=== PATIENT | female | born 1995 | race Caucasian/White ===

== ENCOUNTER 2024-09-23 08:53 | Outpatient (AMB) | payer OTHER, SELFPAY ==
--- NOTE | 2024-09-23 08:56 | MHC.PC.OV ---
Vital Signs 09/23/24 09:04 Height 5 ft 2 in Weight 206 lb 2 oz BMI 37.7 BP 99/66 Blood Pressure Location Lt brachial Position Sitting Respiration 12 Pulse 58 Pulse Source Pulse Oximeter Temp 97.5 F Temp Source Oral Pulse Oximetry (%) 98 Oxygen Delivery Method Room Air Intake Visit Reasons: est care Intake Note: New patient to establish care. Patient also has concerns regarding her menstrual cycle. 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 Required: No Is last menstrual period known: Yes Last menstrual period: 09/01/24 Allergies No Known Allergies Allergy (Verified 09/23/24 08:58) Medication List - Last Reconciled 09/23/24 by Claudia Sheikh, FINANCE INSURANCE MANAGER- bupropion HCl 100 mg PO DAILY lamotrigine (Lamictal) 150 mg PO DAILY sertraline (Zoloft) 50 mg PO DAILY Tobacco use date assessed: 09/23/24 Dental Screening Dental Screen Date: 09/23/24 Did you have a dental visit in the last 12 months?: No Did you have a dental problem in the last 6 months where you did not have access to dental care?: No Was dental information given to patient?: Yes HPI HPI Comments History of Present Illness Details 29 y/o F with obesity, Bipolar, family hx breast ca (MGM), dysmenorrhea Hosp: has been to partial hosp for Bipolar x 2 Surgery: breast reduction 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 - Regular menstrual cycle every 28 to 30 days, noted to be heavy and painful. - Symptoms include exhaustion and severe menstrual cramps. - High flow causing constant use of both a super plus tampon and an overnight pad. - Interested in [facility] referral for potential endometriosis or adenomyosis. - Bipolar disorder treated with sertraline, lamotrigine, and bupropion. managed by online psych. not in counseling, does not think needs. Denies SI/HI Health Maintenance - Tetanus immunization updated today. - Referral to [facility] for menstrual issues. Review of Systems - Reproductive: Reports heavy, painful menstrual bleeding - Psychiatric: Denies current psychiatric symptoms outside of what is managed with current medication GI: BM QD but does have bloating and constipation twice per month. Ears - reports hearing loss bilat, for years, would like hearing test Physical Exam General: Well developed, well nourished, in no acute distress. Appears stated age. Eyes: Pupils are equal, round and reactive to light and accommodation. Conjunctivae are clear. Ears: TMs clear AU, EACS WNL Nose: Patent, without discharge. Neck: Supple, no adenopathy or thyromegaly. Breast: Edu on SBE Lungs: Clear to auscultation bilaterally. No rales, rhonchi or wheeze noted. Good air flow in all cruz. Heart: Regular rate and rhythm. No murmurs, click, rubs or gallops are noted. Abdomen: Bowel sounds present in all quadrants. The abdomen is soft, nontender, with no masses or organomegaly noted. No hernias are noted. Mild tenderness RLQ w/o rebound : Deferred. Reviewed recommendations for routine TIRE CARE MANAGER. Pulses: Peripheral pulses are equal and palpable bilaterally. Extremities: No clubbing, cyanosis nor edema is noted. Neurologic: Gait and station normal. Cranial Nerves 2-12 intact. Motor strength grossly symmetrical and intact. No sensory loss. Balance normal. Skin: No rashes, ulcers, or lesions noted. Turgor is good. Skin color is good. Hair and nails are without abnormalities. Psych: Normal eye contact, affect and mood appropriate, and normal interactions. Patient is alert and appropriate to context. Results Pending Discussion Notes During our consultation, I discussed with the patient her concerns surrounding menstrual abnormalities, specifically the heaviness and pain associated with her periods. We explored the possibility of conditions like endometriosis or adenomyosis which may be contributing to her symptoms. I provided a referral to the [facility] group. We discussed the importance of addressing constipation, possibly with Benafiber or MiraLax, and the necessity of a tetanus booster, which was administered during today's visit. I instructed the patient regarding accessing the patient portal to monitor lab results and to follow-up with online psychiatry and women's health specialists annually. Assessment and Plan 1. Bipolar Disorder - Continue sertraline, lamotrigine, bupropion. - Annual online psychiatry follow-up. 2. Menstrual Abnormalities - [facility] referral placed. - Evaluate for endometriosis/adenomyosis. 3. Obesity - Lifestyle mods 4. Hearing loss Refer for hearing exam Patient Instructions - Call Luna Haywood [facility] CON[facility]ATION[facility] to schedule an appointment. - Consider Benafiber or MiraLax for constipation management. - Use the patient portal to monitor test results. - Labs today -Tdap admin today - Return for an annual exam or as needed. Consent Patient was informed and verbally consented to the use of an ambient scribe for clinic note documentation during this visit. An additional 20 minutes was spent addressing the problem(s) noted at todays visit. This includes time spent before the visit reviewing the chart, time spent during the visit, and time spent after the visit on documentation reviewing laboratory results, diagnostic imaging, medications, performing a medically necessary evaluation, counseling on diagnoses, care coordination, ordering appropriate tests, ordering appropriate medications, review of tests performed by other providers, reporting test results with the patient, communication with other healthcare providers. [facility] Medical History (Updated 09/23/24 @ 09:[address] [facility]) Anxiety and depression Bipolar 1 disorder Surgical History (Updated 09/23/24 @ 09:08 by Jesus Sanchez MA) Hx of breast reduction, elective (~10/2021) Family History (Updated 09/23/24 @ 09:09 by Jesus Sanchez MA) Maternal Grandmother Substance abuse Breast cancer Maternal Grandfather Lung cancer Social History (Updated 09/23/24 @ 09:09 by Jesus Sanchez MA) Household Members: Spouse Both parents involved: No Caregiver staying overnight: No Housing: House Are you a primary medicare compliance auditor to a significant other at home: No Do you presently have visiting nurse or other home services: No 75 years or older and lives alone: No Alcohol intake: current Alcohol intake frequency: a few times a month Patient Tobacco Use Status: Never used Tobacco e-Cigarette/Vaping Use: Never Used Second Hand Smoke Exposure: No Substance Use Type: Marijuana service: No Current occupational status: employed 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 1. Little interest or pleasure in doing things: not at all 2. Feeling down, depressed, or hopeless: not at all 3. Trouble falling or staying asleep, or sleeping too much: more than half the days 4. Feeling tired or having little energy: more than half the days 5. Poor appetite or overeating: not at all 6. Feeling bad about yourself - or that you are a failure or have let yourself or your family down: not at all 7. Trouble concentrating on things, such as reading the newspaper or watching television: several days 8. Moving or speaking so slowly that other people could have noticed. Or the opposite - being so fidgety or restless that you have been moving around a lot more than usual: not at all 9. Thoughts that you would be better off or of hurting yourself in some way: not at all Total score: 5 Depression Screening Interpretation: Positive Depression Screening Follow-up: Existing condition and In treatment Depression Screening Done: Yes 57154 - PHQ-9 Billing: Yes Source: Developed by Drs. Jos Khan, Laurence Phelps, Giancarlo Crawley and colleagues, with an educational latoya from [employer]. Thrive Questionnaire Date Thrive assessed: 09/23/24 I am a: Patient What is your living situation today?: I have a steady place to live Within the past 12 months, did the food you bought not last and you didn't have the money to get more?: Never true Within the past 12 months, did you worry whether your food would run out before you got money to buy more?: Never true Do you have trouble paying for medicines?: No Do you have trouble getting transportation to medical appointments?: No Do you have trouble paying your heating and electricity bill?: No Do you have trouble taking care of your child, family member or friend?: No Do you have trouble with day-to-day activities such as bathing, preparing meals, shopping, managing finances, etc.?: I choose not to answer this question Are you currently unemployed and looking for a job?: No Are you interested in more education?: No Please select the resources that you would like help with: None Currently or been in a relationship where the following occur: I choose not to answer THRIVE Score: 0 AUDIT C Alcohol Use Questionnaire (AUDIT-C) 1. How often do you have a drink containing alcohol?: 2-3 times a week 2. How many drinks containing alcohol do you have on a typical day when you are drinking?: 1 or 2 3. How often do you have six or more drinks on one occasion?: Never Total Score: 3 Score Reviewed/Action Taken: Yes ADRIANA-7 AMB Questionnaire ADRIANA-7 Date ADRIANA - 7 assessed: 09/23/24 Feeling nervous, anxious, or on edge: 1 = Several days Not being able to stop or control worryin = Not at all Worrying too much about different things: 1 = Several days Trouble relaxin = Several days Being so restless that it is hard to sit still: 0 = Not at all Becoming easily annoyed or irritable: 1 = Several days Feeling afraid as if something awful might happen: 0 = Not at all Total ADRIANA-7 score (0-4 normal; 5-9 mild; 10-14 moderate; 15-21 severe): 4 Source: Developed by Drs. Jos Khan, Laurence Phelps, Giancarlo Crawley and colleagues, with an educational latoya from [employer]. ADRIANA-7 Assessment Billing ADRIANA-7 Assessment Tool: ADRIANA-7 Assessment 24551 Physical exam (Primary Care) Vital Signs: Last Vital Signs Temp 97.5 F 09/23/24 09:04 Pulse 58 09/23/24 09:04 Resp 12 09/23/24 09:04 BP 99/66 09/23/24 09:04 Pulse Ox 98 09/23/24 09:04 Oxygen Delivery Method Room Air 09/23/24 09:04 BMI result Body Mass Index 37.7 BMI Assessment/Plan discussion: High BMI High, discussed plan: lifestyle Tobacco/Smoking Status: Tobacco use Status Tobacco use date assessed 09/23/24 09/23/24 09:01 Patient Tobacco Use Status Never used Tobacco 09/23/24 09:09 e-Cigarette/Vaping Use Never Used 09/23/24 09:09 PHQ-9: PHQ-9 Score PHQ-9: Total score 5 09/23/24 09:19 Depression Screening Interpretation: Positive Depression Screening Follow-up: Existing condition and In treatment Thrive Assessment: Date of Thrive Assessment Date Thrive assessed 09/23/24 09/23/24 09:01 Currently or been in a relationship where the following occur: I choose not to answer Immunizations Boostrix Tdap 2.5 Lf unit-8 mcg-5 Lf/0.5 mL intramuscular syringe Performing Provider: AMARA Sanchez Performing Location: [facility] Administered by: Jesus Sanchez MA on 09/23/24 09:44 Dose Route Admin Location Dispensed Lot Number Expiration Date NDC [employer]ricator 0.5 mL IM Left Deltoid 0.5 mL [id number] 12/18/26 [id number] Litesprite VIS Given Date VIS Provided VIS Publication Date 09/23/24 Single Vaccine 20 Eligibility Eligibility Date Funding Source Not [facility] Eligible 09/23/24 Private Coding Level of Care Code New Pt Level 2 (97511) Est Pt Prev Care 18-39y(26732) Diagnoses Encounter to establish care Z76.89 Obesity (BMI 30-39.9) E66.9 Dysmenorrhea N94.6 Laboratory exam ordered as part of routine general medical examination Z00.00 Need for Tdap vaccination Z23 Bipolar 1 disorder F31.9 Bilateral hearing loss, unspecified hearing loss type H91.93 Hearing loss type: unspecified Laterality: bilateral Constipation, unspecified constipation type K59.00 Constipation type: unspecified constipation type Family history of breast cancer Z80.3 Encounter for general adult medical examination with abnormal findings Z00.01 Additional Codes ADRIANA-7 Assessment Billing - ADRIANA-7 Assessment Tool: ADRIANA-7 Assessment 01177 ([id number]) PHQ-9 - 97032 - PHQ-9 Billing: Yes ([id number]) Assessment & Plan Assessment & Plan (1) Encounter to establish care: Code(s): Z76.89 - Persons encountering health services in other specified circumstances (2) Obesity (BMI 30-39.9): Code(s): E66.9 - Obesity, unspecified Category: Medical (3) Dysmenorrhea: Code(s): N94.6 - Dysmenorrhea, unspecified Category: Medical (4) Laboratory exam ordered as part of routine general medical examination: Code(s): Z00.00 - Encounter for general adult medical examination without abnormal findings Category: Medical (5) Need for Tdap vaccination: Code(s): Z23 - Encounter for immunization Category: Medical (6) Bipolar 1 disorder: Code(s): F31.9 - Bipolar disorder, unspecified Category: Medical (7) Hearing loss: Code(s): H91.90 - Unspecified hearing loss, unspecified ear Category: Medical Qualifiers: Hearing loss type: unspecified Laterality: bilateral Qualified Code(s): H91.93 - Unspecified hearing loss, bilateral (8) Constipation: Code(s): K59.00 - Constipation, unspecified Category: Medical Qualifiers: Constipation type: unspecified constipation type Qualified Code(s): K59.00 - Constipation, unspecified (9) Family history of breast cancer: Comment: [facility] Code(s): Z80.3 - Family history of malignant neoplasm of breast Category: Medical (10) Encounter for general adult medical examination with abnormal findings: Onset Date: ~09/23/24 Code(s): Z00.01 - Encounter for general adult medical examination with abnormal findings Category: Medical Plan . Orders: Orders TDaP Immunization Today Z23 - Encounter for immunization Complete Blood Count no Diff Today Z00.00 - Encounter for general adult medical examination without abnormal findings Comprehensive Met. Panel Today Z00.00 - Encounter for general adult medical examination without abnormal findings Lipid Panel Today Z00.00 - Encounter for general adult medical examination without abnormal findings Microalbumin, Random (w Creat) Today Z00.00 - Encounter for general adult medical examination without abnormal findings Vitamin D 25-OH Total Today Z00.00 - Encounter for general adult medical examination without abnormal findings Hemoglobin A1c Today Z00.00 - Encounter for general adult medical examination without abnormal findings Ferritin Today Z00.00 - Encounter for general adult medical examination without abnormal findings TSH reflex Free T4 Today Z00.00 - Encounter for general adult medical examination without abnormal findings Vitamin B12 and Folate Today Z00.00 - Encounter for general adult medical examination without abnormal findings Referrals [facility] Referral N94.6 - Dysmenorrhea, unspecified, Z12.4 - Encounter for screening for malignant neoplasm of cervix Audiology Referral H91.90 - Unspecified hearing loss, unspecified ear Medications: New Boostrix Tdap (diphth,pertus(acell),tetanus) 0.5 mL IM ONCE 0.5 mL 0RF NS Z23 - Encounter for immunization Patient Instructions: Walk-In Care (Urgent Care): We Make it Easy Walk-in for urgent medical issues such as: ? Seasonal Allergies ? Insect Bites ? Cough ? Diarrhea ? Acute Asthma Attacks ? Back, Knee or Joint Pain ? Ear Infection ? Fever without a Rash ? Headaches ? Nausea ? [place], Rash or Skin Irritation ? Sore Throat ? Sports Physicals ? Vomiting Most insurances are accepted. Patients do not need to be part of the [facility] to seek care at the walk-in clinic. Locations [address] [place] [address] ? [phone] [facility] Walk-In Care in [place] provides services to ages 18 and over. Open Saturday-Saturday: 8 a.m. to 5 p.m. and Saturday: 9 a.m. to 3 p.m.* *Hours may vary due to staffing availability. To confirm Walk-In Care hours in [place], please call [phone]. [address] [place] [address] ? [phone] [facility] Walk-In Care in [place] provides services to ages 12 and over. Open Saturday-Saturday: 8 a.m. to 5 p.m. Hours may vary due to staffing availability. To confirm Walk-In Care hours in [place], please call [phone]. LABORATORY SERVICES: [facility] Lab ? Primary Location [address] [place] [address] Saturday through Saturday 6:00 AM ? 5:00 PM Saturday 7:00 AM ? 11:00 AM* [phone] The [facility] Lab is centrally located near the front entrance of the [facility] Center for easy outpatient access. Convenient parking is provided for outpatients. *Hours may vary due to staffing availability. To confirm Laboratory hours for any location, please call [phone]. Offsite Location For your convenience, we offer offsite laboratory draw stations at the following locations: [address] [place] [address] ? [facility] [address], [address] Saturday through Saturday 7:30 AM ? 1:00 PM* [phone] *Hours may vary due to staffing availability. To confirm Laboratory hours for any location, please call [phone]. [place] ? [address] Saturday through Saturday 6:00 AM ? 3:30 PM* Saturday 6:30 AM ? 3 PM* [phone] *Hours may vary due to staffing availability. To confirm Laboratory hours for any location, please call [phone]. [address] [facility] Saturday through Saturday 7:30 AM ? 4:00 PM* [phone] *Hours may vary due to staffing availability. To confirm Laboratory hours for any location, please call [phone]. [address] [facility] Saturday through 9:00 AM ? 4:00 PM* *Hours may vary due to staffing availability. To confirm Laboratory hours for any location, please call [phone]. Appointments are not necessary. Walk-ins are welcome. Like all the departments throughout the [facility], our Lab undergoes frequent reviews to ensure the quality and accuracy of test results, and our staff takes special pride in its status as a nationally accredited facility. Patient Portal: ONE PATIENT. ONE RECORD. BETTER CARE. [facility] has a fully integrated, cutting-edge mobile electronic health information system that has revolutionized the way we care for our patients and manage our organization. This system improves communication and coordination enabling us to provide safe, higher-quality care, and an overall positive experience for staff and patients. Our first priority, as always, is to deliver the highest quality care possible. The system is running in the background supporting that priority. This portal is for all [facility] and [facility] services and practices. If you are experiencing any technical difficulties with enrolling or logging into the Patient Portal please complete the [facility] Patient Portal Technical Support Form. [facility] now offers a new secure on-line interactive tool for patients to review their health information ? ?Patient Portal. This interactive web portal will enable patients and their families to take an active role in their care by providing easy, secure access to their health information via the internet. The Patient Portal provides patients with instant access to their health information, including laboratory results, medications, allergies, demographic information, visit history, and more. In addition to managing their own care, parents and health care proxies with authorized consent will appreciate the ability to access the records of those individuals for whom they provide care. Please note: if you wish to gain access (Proxy) to another patient?s portal, you will be required to come to the Medical Records Department in person at [facility]. Both the patient giving proxy access and the proxy will need to provide photo identification and complete the appropriate authorization. The Patient Portal also allows track their appointments online. The [facility] Patient Portal also saves patients time by allowing them to submit updates to their demographic and contact information prior to their visits. Portal email notifications will also alert patients to any new activity on their portal, such as test results and new appointments. In order to initially enroll in the [facility] Patient Portal, you will need to enter some required information including the following: your [facility] Medical Record number your personal home email address name date of Please note: In order to enroll in the [facility] Patient Portal, we need to have your email address on file in your electronic medical record. ?The email address needs to be specific for one person (yourself) in order for your Portal enrollment to be successful. ?You can update your email address in person with our Registration staff when you are registering for a hospital visit. ?Otherwise, you will need to come to the Health Information Management (Medical Records) Department at [facility]. ?We are open from Saturday ? Saturday from 7:30 a.m. ? 4:30 p.m. ?You will be required to present a photo id. Once you have successfully enrolled in the Patient Portal, you will receive a one-time user id and password for the Portal, sent to your email address. ?This will allow you to log into the Patient Portal within 99 hrs and reset your own logon id and password, and define personal security questions. ?Once your permanent login and password have been set, you can log into the [facility] Patient Portal at any time via the blue button above or from the Portal Logon button on any page of the [facility] website. [facility] encourage all of our patients to enroll in Patient Portal as it presents a valuable opportunity for patients and their families to actively participate in their care and stay healthy Welcome to [facility]. ?We look forward to working with you. Health screenings for women You should visit your health care provider from time to time, even if you are healthy. The purpose of these visits is to: Screen for medical issues Assess your risk for future medical problems Encourage a healthy lifestyle Update vaccinations and other preventive care services Help you get to know your provider in case of an illness Information Even if you feel fine, you should still see your provider for regular checkups. These visits can help you avoid problems in the future. For example, the only way to find out if you have high blood pressure is to have it checked regularly. High blood sugar and high cholesterol levels also may not have any symptoms in the early stages. A simple blood test can check for these conditions. There are specific times when you should see your provider or receive specific health screenings. The [place] Preventive Services Task Force publishes a list of recommended screenings. Below are screening guidelines for women ages 18 to 39. BLOOD PRESSURE SCREENING Your blood pressure should be checked at least once every 3 to 5 years if: Your blood pressure is in the normal range (top number less than 120 mm Hg and bottom number less than 80 mm Hg) You don't have risk factors for high blood pressure Ask your provider if you need your blood pressure checked more often if: The top number is 120 to 129 mm Hg or the bottom number is 70 to 79 mm Hg You have diabetes, heart disease, kidney problems, are overweight, or have certain other health conditions You have a first-degree relative with high blood pressure You are Black You had high blood pressure during a If the top number is 130 mm Hg or greater or the bottom number is 80 mm Hg or greater, this is considered stage 1 hypertension. Schedule an appointment with your provider to learn how you can reduce your blood pressure. Watch for blood pressure screenings in your area. Ask your provider if you can stop in to have your blood pressure checked. BREAST CANCER SCREENING Experts do not agree about the benefits of breast self-exams in finding breast cancer or saving lives. Talk to your provider about what is best for you. A screening mammogram is not recommended for most women under age 40. Your provider may discuss and recommend mammograms, MRI scans, or ultrasounds if you have an increased risk for breast cancer, such as: A mother or sister who had breast cancer at a young age (most often starting screening earlier than the age the close relative was diagnosed) You carry a high-risk genetic marker CERVICAL CANCER SCREENING Cervical cancer screening should start at age 21 years unless your provider advises otherwise. After the first test: Women ages 21 through 29 should have a Pap test every 3 years. Exoprts do not agree on whether HPV testing is recommended for this age group. Women ages 30 through 65 should be screened with either a Pap test every 3 years or the HPV test every 5 years or both tests every 5 years (called cotesting ). Women who have been treated for precancer (cervical dysplasia) should continue to have Pap tests for 20 years after treatment or until age 65, whichever is longer. If you have had your uterus and cervix removed (total hysterectomy), and you have not been diagnosed with cervical cancer or precancer (high grade cervical neoplasia), you do not need cervical cancer screening. CHOLESTEROL SCREENING Cholesterol screening should begin at: Age 45 for women with no known risk factors for coronary heart disease Age 20 for women with known risk factors for coronary heart disease Repeat cholesterol screening should take place: Every 5 years for women with normal cholesterol levels More often if changes occur in lifestyle (including weight gain and diet) More often if you have diabetes, heart disease, kidney problems, or certain other conditions DIABETES SCREENING You should be screened for diabetes starting at age 35 and then repeated every 3 years if you have no risk factors for diabetes. Screening may need to start earlier and be repeated more often if you have other risk factors for diabetes, such as: You have a first degree relative with diabetes. You are overweight or have obesity. You have high blood pressure, prediabetes, or a history of heart disease. Screening for diabetes should be done if you are planning to become and you are overweight and have other risk factors such as high blood pressure. DENTAL EXAM Go to the dentist once or twice every year for an exam and cleaning. Your dentist will evaluate if you need more frequent visits. EYE EXAM Have an eye exam every 5 to 10 years before age 40. If you have vision problems, have an eye exam every 2 years or more often if recommended by your provider. You should have an eye exam that includes an examination of your retina (back of your eye) at least every year if you have diabetes. IMMUNIZATIONS Commonly needed vaccines include: Flu shot: get one every year. COVID-19 vaccine: ask your provider what is best for you. Tetanus-diphtheria and acellular pertussis (Tdap) vaccine: have one at or after age 19 as one of your tetanus-diphtheria vaccines if you did not receive it as an adolescent. Tetanus-diphtheria: have a booster (or Tdap) every 10 years. Varicella vaccine: receive 2 doses if you never had chickenpox or the varicella vaccine. Hepatitis B vaccine: receive 2, 3, or 4 doses, depending on your exact circumstances. Measles, mumps, and rubella (MMR) vaccine: receive 1 to 2 doses if you are not already immune to MMR. Your provider can tell you if you are immune. Ask your provider about the human papillomavirus (HPV) vaccine if: You have not received the HPV vaccine in the past You have not completed the full vaccine series (you should catch up on this shot) Ask your provider if you should receive other immunizations if you have certain health problems that increase your risk for some diseases such as pneumonia. INFECTIOUS DISEASE SCREENING Women who are sexually active should be screened for chlamydia and gonorrhea up until age 25. Women 25 years and older should be screened for chlamydia and gonorrhea if at high risk. Screening for hepatitis C: All adults ages 18 to 79 should get a one-time test for hepatitis C. people should be screened at every . Screening for human immunodeficiency virus (HIV): All people ages 15 to 65 should get a one-time test for HIV. Depending on your lifestyle and medical history, you may also need to be screened for infections such as syphilis and HIV, as well as other infections. PHYSICAL EXAM All adults should visit their provider from time to time, even if they are healthy. The purpose of these visits is to: Screen for disease Assess your risk of future medical problems Encourage a healthy lifestyle Update your vaccinations and other preventive care services Maintain a relationship with a provider in case of an illness Your height, weight, and BMI should be checked at every exam. During your exam, your provider may ask you about: Depression and anxiety Diet and exercise Alcohol and tobacco use Safety issues, such as using seat belts, smoke detectors, and intimate partner violence Your medicines and risk for interactions SKIN SELF-EXAM Your provider may check your skin for signs of skin cancer, especially if you're at high risk, such as if you: Have had skin cancer before Have close relatives with skin cancer Have a weakened immune system OTHER SCREENING Talk with your provider about colon cancer screening if you have a strong family history of colon cancer or polyps, or if you have had inflammatory bowel disease or polyps yourself. Routine bone density screening of women under 40 is not recommended.
[2024-09-23 09:04] VITALS: BP 99/66; PULSE 58; RESP 12; TEMP 36.4; O2SAT 98; BMI 37.7
--- OUTSIDE RECORDS SUMMARY | 2024-09-23 09:16 | XMS_ITS | Data Portability ---
Author Organization [place] - [facility] , [facility] ([facility]) Address [address] [place] [address] Assessment Encounter Date Assessment Date Assessment LastModified by Organization Details LastModified Time 05/23/2024 05/23/2024 Encounter for issue of repeat prescription Assessment: Patient in need of medication for refill for Lamictal 150mg Take po daily #90, Wellbutrin XL 150mg po daily #90, and Zoloft 100mg po 2 times #180. Patient agrees with assessment and plan of care. Plan Medication refill sent to pharmacy. Patient will follow up as needed. Go to the ER or urgent care if you develop difficulty breathing or swallowing or any worsening symptoms. [email or web address] Not available 05/23/2024 10:00:40 Plan of Treatment Reminders Order Date Submit Date Provider Last Modified By Organization Details Last Modified Time Details Appointments None recorded. Lab None recorded. Referral None recorded. Procedures None recorded. Surgeries None recorded. Imaging None recorded. Medication Orders Lamictal 150 mg tablet 2024 025 [facility][id number], [address], [place], [id number], 10:00:07 sertraline 100 mg tablet 2024 025 [facility], [address], [place], [id number], 10:00:11 bupropion HCl XL 150 mg 24 hr tablet, extended release 2024 025 [facility], [address], [place], [id number], 5 10:00:07 Lamictal [address] [facility] #53455, [address], [place], [id number], 5 10:02:22 bupropion HCl XL 150 mg 24 hr tablet, extended release [address] [facility] #34182, [address], [place], [id number], 5 10:02:22 sertraline 100 mg tablet [address] [facility] #28056, [address], [place], [id number], 5 10:02:26 Patient TargetsNo targets recorded. Patient InstructionsNo instructions recorded. Reason for Referral None Reported. Problems Name Problem SNOMED Code Status Onset Date Resolution Date Notes Provider Name and Address Organization Details Recorded Time Anxiety 88168721 Active 2024 Esha Ghotra [facility] [address], [address], [place] [facility] 5 09:59:17 Depressive disorder 34920975 Active 2024 Esha Ghotra [facility] [address], [address], [place] [facility] 5 09:59:22 Problem Notes None recorded. Medical Equipment None Reported. Allergies No known drug allergies Medications Name Sig Start Date Stop Date Status Note LastModified by Organization Details LastModified Time sertraline 100 mg tablet Take 1 tablet twice a day by oral route. 025 active Not Available Not Available Not Avai lable Lamictal 150 mg tablet Take 1 tablet every day by oral route. active Not Available Not Available Not Avai lable bupropion HCl XL 150 mg 24 hr tablet, extended release Take 1 tablet every day by oral route. 05/02/2 025 active Not Available Not Available Not Avai lable Wellbutrin XL active ADDED BY KAILEY T: 150mg Not Available Not Available Not Available Vitals None Recorded Social History None recorded. Functional Status None recorded. Mental Status None recorded. Family History Nothing Reported. Medical History No medical history recorded. Gynecological HistoryNo gynecological history recorded. Obstetrics History GPAL:G 0 P 0 0 0 0 Past Encounters Encounter ID Performer Location Encounter Start Date Encounter Closed Date Diagnosis/Indication Diagnosis SNOMED-CT Code Diagnosis ICD10 Code Diagnosis Note [id number] Esha SherwoodAshley , [address] [address] 05/23/2024 09:56:59 05/23/2024 16:02:36 Generalized anxiety disorder 51176269 F41.1 [id number] Jaqueline Culp, [address] [address] 08/21/2024 09:56:57 08/22/2024 01:24:22 Repeated prescription 125867026 Z76.0 Generalize d anxiety disorder 04044379 F41.1 Continue Lamictal per RXContinue Sertraine per RXContinue Wellbutrin XL per RX Patient verbalizes an understand ing of the medication purpose and possible side effects and feels that the benefits outweigh the risk at this time. The patient denies any questions. *Advised patient on the importance of following up with any questions/ concerns or if symptoms worsen or do not improve. Reviewed red flag symptoms that would indicate need for emergent follow up locally. Diagnosis, education and treatment plan discussed and all questions answered. Patient voiced understand ing and agreement with plan as outlined above. Health Concerns Section Related Observation LastModified by Organization Detai ls LastModified Time None Recorded Concern Status LastModified by Organization Details LastModified Time None Recorded Advance Directives Directive None Recorded Payers Insurance Date Sequence Insurance Name Policy Number Policy Rutledge Covered Member ID Rutledge Member ID Guarantor Name 05/23/2024 2 *SELF PAY* Nelida Pryfogle [id number] Nelida Pryfogle 08/21/2024 [facility] Nelida Pryfogle [id number] Nelida Pryfogle 05/23/2024 1 *SELF PAY* Coto nnah Pryfogle 08/21/2024 1 [facility] Nelida Pryfogle [id number] Nelida Pryfogle Notes Date Note Type Note Provider Name and Address Organization Details Recorded Time 05/23/2024 text/html Call connected, patient greeted. Patient name, , telephone number and location verified verbally with the patient. Telemedicine limitations reviewed and verbal consent obtained to treat. Clinician attests they are physically located in the following state at the time of visit: [place]. CC: Medication Refill HPI: Patient is a 29 year old female requesting medication refill. Reports is currently on Lamictal, Wellbutrin, and Zoloft. Has been on for several years. Condition controlled with medication. No side effects reported.Requestin g refill due to not being able to get PCP/Specialty appointment til next couple of months.Recent labs last yearChart reviewed, no noted conditional refill instructions.LMP-2 weeks agoCovid-Not eliciting symptoms of Covid LAUREN Martinez [address] [facility] [address], [place], [address], [facility] 05/23/2024 10:02:46 08/21/2024 text/html Call connected, patient greeted. Clinician introduced along with credentials Patient name, , telephone number, and location verified verbally with the patient. Telemedicine limitations reviewed, answered all questions the patient had about the telehealth interaction, and verbal consent obtained to treat. Clinician attests they are physically located in the following state at the time of visit: [place] physical location at the time of our visit is in the state of [place] CC Medication RefillCC anxiety HPI 29 yo male presents with a cc of anxiety medication refill.. Patient states she is needing a medication refill for :1) LaMICtal 150 mg tablet QD2) Sertraline 100 mg PO QD3) bupropion HCL XL 150 mg QDGAD-7 = 4, PHQ-9 = 5 Denies loss of interest in activity of depressed mood. Denies SI or HI she she feels her symptoms /dx is controlled without side effects. has been on current meds and dosages for greater then 5 years LAUREN Patrick 1 [facility] [address], [place], [address], [facility] - [facility] 08/21/2024 21:52:18 OBGyn Episode No OBEpisode recorded.
== END 2024-09-23 09:44 | disposition home or self-care (01) ==
LOC: HO.HMCFM 08:53
PROVIDERS: PCP Nurse Practitioner Family; Visit Provider Nurse Practitioner Family
DX: Z00.01 Encounter for general adult medical examination with abnormal findings (principal); N94.6 Dysmenorrhea, unspecified; F31.9 Bipolar disorder, unspecified; Z68.37 Body mass index [BMI] 37.0-37.9, adult; E66.9 Obesity, unspecified; Z76.89 Persons encountering health services in other specified circumstances; Z23 Encounter for immunization; H91.93 Unspecified hearing loss, bilateral; K59.00 Constipation, unspecified; Z80.3 Family history of malignant neoplasm of breast

== ENCOUNTER → 2024-09-23 08:53 | Outpatient (BNVA) | payer OTHER, SELFPAY | PROVIDERS: PCP Nurse Practitioner Family; Visit Provider Nurse Practitioner Family | DX: Z00.01 Encounter for general adult medical examination with abnormal findings (principal); E66.9 Obesity, unspecified; F31.9 Bipolar disorder, unspecified; N94.6 Dysmenorrhea, unspecified; H91.93 Unspecified hearing loss, bilateral; K59.00 Constipation, unspecified; Z80.3 Family history of malignant neoplasm of breast; Z23 Encounter for immunization; Z76.89 Persons encountering health services in other specified circumstances; Z68.37 Body mass index [BMI] 37.0-37.9, adult | CPT/HCPCS: 90471; 90715; 96127 ==

== ENCOUNTER 2024-09-23 09:49 | Outpatient (REF) | payer OTHER, SELFPAY ==
[2024-09-23 11:34] LABS: Hematocrit 42.3 % (37.0-47.0); Hemoglobin 13.8 g/dl (12.0-16.0); Mean Corpuscular HGB Conc 32.6 g/dl (31.0-35.0); Mean Corpuscular Hemoglobin 27.2 pg (27.0-33.0); Mean Corpuscular Volume 83.3 fL (80.0-98.0); Mean Platelet Volume 9.4 fL (9.4-12.3); Platelet Count 315 X10*3/uL (160-400); Red Blood Count 5.08 X10*6/uL (4.20-5.50); Red Cell Distribution Width 13.5 % (11.0-16.0); White Blood Count 7.3 X10*3/uL (4.8-10.8)
[2024-09-23 11:43] LABS: Estimated Average Glucose 103 mg/dL; Hemoglobin A1c % 5.2 % (<6.0)
[2024-09-23 12:59] LABS: Folate 8.2 ng/mL (> or = 4.0); Vitamin B12 518 pg/mL (200-900)
[2024-09-23 14:43] LABS: Alanine Aminotransferase 378 U/L (0-31); Albumin Level 4.7 g/dL (3.5-5.0); Alkaline Phosphatase 131 U/L (39-117); Anion Gap 11 (12-20); Aspartate Amino Transferase 197 U/L (5-31); Bilirubin Total 0.4 mg/dL (0.0-1.0); Blood Urea Nitrogen 10 mg/dL (9-16); Calcium 9.6 mg/dL (8.4-10.2); Carbon Dioxide 25 mmol/L (22-29); Chloride 107 mmol/L (96-108); Cholesterol 226 mg/dL (<200); Estimated Glomerular Filt Rate > 60; Ferritin 29 ng/mL (10-122); Glucose Random 80 mg/dL (60-115); HDL Cholesterol 42 mg/dL (>40); LDL Cholesterol Calculated 137 mg/dL (<100); Potassium 3.8 mmol/L (3.3-5.1); Sodium 139 mmol/L (135-145); TSH reflex Free T4 1.58 uIU/mL (0.32-4.0); Total Protein 7.6 g/dL (6.5-8.0); Triglycerides 238 mg/dL (<150); Vitamin D 25-OH Total 23.5 ng/mL (>30)
[2024-09-23 14:52] LABS: Creatinine Urine 146.39 mg/dL; Microalbumin Urine < 5.0 mg/L
== END 2024-09-23 09:50 | disposition home or self-care (01) ==
LOC: HO.WFDLDS 09:49
PROVIDERS: Visit Provider Nurse Practitioner Family
DX: Z00.00 Encounter for general adult medical examination without abnormal findings (principal); Z13.1 Encounter for screening for diabetes mellitus; Z13.6 Encounter for screening for cardiovascular disorders; E78.00 Pure hypercholesterolemia, unspecified
CPT/HCPCS: 36415; 80053; 80061; 82306; 82570; 82607; 82728; 82746; 83036; 84443; 85027

== ENCOUNTER 2024-10-02 14:40 | Outpatient (AMB) | payer OTHER, SELFPAY ==
--- NOTE | 2024-10-02 14:40 | A.OFFPC_ITS ---
Intake Visit Reasons: possible referral for galbladder removal Intake Note: Telehealth Patient states shes out of state and needs surgery on gallbladder. Patient need referral for surgeon for gallbladder. Track Manager Required: No Allergies No Known Allergies Allergy (Verified 10/02/24 15:15) Medication List - Last Reconciled 10/02/24 by SHYANN SanchezP- bupropion HCl 100 mg PO DAILY cholecalciferol (vitamin D3) 25 mcg PO DAILY lamotrigine (Lamictal) 150 mg PO DAILY sertraline (Zoloft) 50 mg PO DAILY Tobacco use date assessed: 10/02/24 Dental Screening Dental Screen Date: 10/02/24 Did you have a dental visit in the last 12 months?: Yes Did you have a dental problem in the last 6 months where you did not have access to dental care?: No Was dental information given to patient?: Patient has dentist HPI HPI Comments History of Present Illness Details 29 y/o F with obesity, Bipolar, family h x breast ca (MGM), dysmenorrhea Hosp: has been to partial hosp for Bipolar x 2 Surgery: breast reduction 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 - Acute onset of abdominal pain occurred during a trip to [place]. - Worsening liver function tests were de tected during hospital admission. - MRI confirmed obstructive gallstones. - Treatment included dietary changes, pa in relief, fluids, and antibiotics, leading to improvement. - Scheduled for ERCP as an outpatient on Saturday, in [place]. If this goes well, plans to return to [facility] Saturday. - Requests surgical referral in the [place] for gallbladder removal. Review of Systems - Gastrointestinal: Reports acute abdomi nal pain. - General: Reports improving symptoms af ter treatment. - Hepatic: Reports elevated liver enzyme s, trending downwards with treatment. Physical Exam Limited physical exam was conducted Awake alert NAD Scleras nonicteric Speaking in full sentences Engaging, appropriate Skin pink warm and dry Mood and affect appropriate Results - Labs: Elevated liver function tests - Imaging: MRI confirmed obstructive gal lstones Assessment and Plan 1. Acute abdominal pain - Pain secondary to gallstones. - Pain managed with medication and fluid s. 2. Obstructive gallstones - Confirmed by MRI. - ERCP scheduled on Saturday. 3. Elevated liver function tests - Caused by gallstones. - Monitored for improvement. 4. Referral for cholecystectomy - Referral to surgical team at [facility] - Coordination for appointment setup. Asked she send me clinical info via portal to have avail to [facility] Gen Surg Team. Telehealth Attestation Telehealth services provided; accurate documentation of the visit conducted via video. The patient has been explained that this is an interactive (audio/video) telehealth encounter and what that consists of. The patient understands and wishes to proceed. TrustTeam platform was used. Total time spent caring for the patient today was 31 minutes. This includes time spent before the visit reviewing the chart, time spent during the visit, and time spent after the visit on documentation, reviewing laboratory results, diagnostic imaging, medications, performing a medically necessary evaluation, counseling on diagnoses, care coordination, ordering appropriate tests, ordering appropriate medications, review of tests performed by other providers, reporting test results with the patient, communication with other healthcare providers. [facility] Medical History (Updated 10/02/24 @ 15:32 by Claudia Sheikh, [facility]) Anxiety and depression Bipolar 1 disorder Surgical History (Updated 09/23/24 @ 09:08 by Jesus Sanchez MA) Hx of breast reduction, elective (~10/2021) Family History (Updated 09/23/24 @ 09:09 by Jesus Sanchez MA) Maternal Grandmother Substance abuse Breast cancer Maternal Grandfather Lung cancer Social History (Updated 09/23/24 @ 09:09 by Jesus Sanchez MA) Household Members: Spouse Both parents involved: No Caregiver staying overnight: No Housing: House Are you a primary livestock caretaker to a significant other at home: No Do you presently have visiting nurse or other home services: No 75 years or older and lives alone: No Alcohol intake: current Alcohol intake frequency: a few times a month Patient Tobacco Use Status: Never used Tobacco e-Cigarette/Vaping Use: Never Used Second Hand Smoke Exposure: No Substance Use Type: Marijuana service: No Current occupational status: employed 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 Jos Khan, Laurence Phelps, Giancarlo Crawley and colleagues, with an educational latoya from [employer]. Physical exam (Primary Care) Tobacco/Smoking Status: Tobacco use Status Tobacco use date assessed 10/02/24 10/02/24 14:43 Patient Tobacco Use Status Never used Tobacco 10/02/24 14:43 e-Cigarette/Vaping Use Never Used 10/02/24 14:43 Thrive Assessment: Date of Thrive Assessment Date Thrive assessed 09/23/24 10/02/24 14:43 Telehealth Telehealth Telehealth Platform: TrustTeam Location of provider rendering services: practice address ([facility]) Location of patient: address on file ([facility]) Patient Identification confirmed using: Name, : Yes Telehealth method: video Patient verbally consented to treatment: Yes Patient verbally consented to billing insurance company: Yes Patient informed of any privacy concerns related to visit: Yes Minutes spent on Phone/Video with Pt.: 13 Results Reviewed Results Reviewed: RUN: 10/02/24 1518 PAGE 1 [facility] [address] [place] [id number] It Sales Executive: Delano Stock M.D. Specimen Inquiry Name: Nelida Fountain Age/Sex: 29/F : 1995 Unit#: [id number] Attend Dr: Claudia Sheikh Re09/23/24 Status: DEP REF Location: [id number].[id number] Disch: SPEC : [id number] DOROTHY: 09/23/2451 STATUS: COMP REQ : [id number] RECD: 09/23/24-[address]: Claudia Sheikh COMP: 09/23/241443 ENTERED: 09/23/2450 GURVINDER KING: ORDERED: CMP, Ferritin, Lipid Panel, Vitamin D 25-OH, TSH Rflx Test Result Flag Reference Sodium 139 135-145 mmol/L Potassium 3.8 3.3-5.1 mmol/L CL 107 96-108 mmol/L CO2 25 22-29 mmol/L Gap 11 L 12-20 BUN 10 9-16 mg/dL Creat 0.75 0.5-1.4 mg/dL eGFR > 60 Chronic Kidney Disease: Estimated GFR < 60 mL/min/1.73m2 Severe Kidney Disease: Estimated GFR < 15 mL/min/1.73m2 Glucose, Random 80 60-115 mg/dL CA 9.6 8.4-10.2 mg/dL Ferritin 29 10-122 ng/mL Total Bili 0.4 0.0-1.0 mg/dL AST (GOT) 197 H 5-31 U/L ALT (GPT) 378 H 0-31 U/L Protein, Total 7.6 6.5-8.0 g/dL Alb 4.7 3.5-5.0 g/dL Triglyceride 238 H <150 mg/dL Desirable Triglyceride: less than 150 mg/dL Borderline High Triglyceride 150-199 mg/dL High Triglyceride: 200-499 mg/dL Very High Triglyceride: greater than or equal to 5OO mg/dL Cholesterol 226 H <200 mg/dL Desirable Cholesterol: less than 200 mg/dL Borderline High Cholesterol: 200-239 mg/dL High Cholesterol: greater than 239 mg/dL LDL Calculated 137 H <100 mg/dL Desirable LDL: less than 100 mg/dL Near Optimal/Above Optimal LDL: 110-129 mg/dL Borderline High LDL: 130-159 mg/dL High LDL: 160-189 mg/dL Very High LDL: greater than or equal to 190 mg/dL HDL 42 >40 mg/dL Desirable HDL: greater than 40 mg/dL Note: This HDL assay may give artificially low results in patients with liver disease. Alk Phos 131 H 39-117 U/L Vitamin D 25-OH 23.5 L >30 ng/mL Health Based Reference Values* < 20 ng/mL Deficient 20-30 ng/mL Insufficient > 30 ng/mL Sufficient *Christiano DUNCAN. N Engl J Med. 2007;357:266-280 There is no well-established upper level of normal vitamin D levels. Some laboratories use 50 ng/mL as an upper limit of normal. However, toxicity is patient-dependent and may occur at any level. Careful correlation with the patient's presentation is necessary and, if there is concern for vitamin D toxicity, treatment should be considered irrespective of the serum level. Care must be taken in interpreting Vitamin D results from different laboratories and methodologies. Published data demonstrated that results from patients undergoing hemodialysis may show a negative bias when tested with various automated 25-OH vitamin D assays when compared to LC-MS/MS. When testing samples from patients whose predominant form of Vitamin D is Vitamin D2, such as patients receiving Vitamin D2 supplementation, results that are subtherapeutic should be confirmed with another method such as LC-MS/MS. TSH 1.58 0.32-4.0 uIU/mL END OF REPORT Coding Level of Care Code Tele Est Pt Level 4 (83039) Complex EM visit Add On G2211 Diagnoses Cholelithiasis and acute cholecystitis with obstruction K80.01 Elevated LFTs R79.89 Assessment & Plan Assessment & Plan (1) Cholelithiasis and acute cholecystitis with obstruction: Code(s): K80.01 - Calculus of gallbladder with acute cholecystitis with obstruction Category: Medical (2) Elevated LFTs: Code(s): R79.89 - Other specified abnormal findings of blood chemistry Category: Medical Plan . Orders: Referrals General Surgery Referral K80.01 - Calculus of gallbladder with acute cholecystitis with obstruction, R79.89 - Other specified abnormal findings of blood chemistry
--- OUTSIDE RECORDS SUMMARY | 2024-10-02 14:42 | XMS_ITS | Data Portability ---
Author Organization [place] - [facility] , [facility] Address [address] [place] [address] Assessment Encounter Date Assessment Date Assessment LastModified [...] Orders Lamictal 150 mg tablet 2024 025 [facility]88324, [address], [place], [id number], 10:00:07 sertraline 100 mg tablet 2024 025 [facility], [address], [place], [id number], 10:00:11 bupropion HCl XL 150 mg 24 hr tablet, extended release 2024 025 [facility], [address], [place], [id number], 5 10:00:07 Lamictal 150 mg tablet 2024 025 [facility] #63716, [address], [place], [id number], 5 10:02:22 bupropion HCl XL 150 mg 24 hr tablet, extended release 2024 025 [facility] #64408, [address], [place], [id number], 5 10:02:22 sertraline 100 mg tablet 2024 025 [facility] #05060, [address], [place], [id number], 5 10:02:26 Patient TargetsNo targets recorded. Patient InstructionsNo instructions recorded. Reason for Referral None Reported. Problems Name Problem SNOMED Code Status Onset Date Resolution Date Notes Provider Name and Address Organization Details Recorded Time Anxiety 40457646 Active 2024 Esha Ghotra [facility] [address], [address], [place] [facility] 5 09:59:17 Depressive disorder 01593638 Active 2024 Esha Ghotra [facility] [address], [address], [place] [facility] 5 09:59:22 Problem [...] SNOMED-CT Code Diagnosis ICD10 Code Diagnosis Note [id number] Esha SherwoodAshley , [address] [address] 05/23/2024 09:56:59 05/23/2024 16:02:36 Generalized anxiety disorder 54146923 F41.1 [id number] Jaqueline Culp, [address] [address] 08/21/2024 09:56:57 08/22/2024 01:24:22 Repeated prescription [id number] Z76.0 Generalize d anxiety disorder 52048724 F41.1 Continue Lamictal per RXContinue Sertraine per [...] Name 05/23/2024 2 *SELF PAY* Nelida Pryfogle [id number] Nelida Pryfogle 08/21/2024 [facility] Nelida Pryfogle [id number] Nelida Pryfogle 05/23/2024 1 *SELF PAY* Coto nnah Pryfogle 08/21/2024 1 [facility] Nelida Pryfogle [id number] Nelida Pryfogle Notes Date Note Type Note Provider Name and Address Organization Details Recorded Time 05/23/2024 text/html Call connected, patient greeted. Patient name, , telephone number and location verified verbally with the patient. Telemedicine limitations reviewed and verbal consent obtained to treat. Clinician attests they are physically located in the following state at the time of visit: [place]. CC: Medication Refill HPI: Patient is a [...] eliciting symptoms of Covid LAUREN Martinez 1 [facility] [address], [place], [address], [facility] 05/23/2024 10:02:46 [...] following state at the time of visit: [place] physical location at the time of our visit is in the state of [place] CC Medication RefillCC anxiety HPI 29 yo [...] greater then 5 years LAUREN Patrick 1 [facility] [address], [place], [address], [facility] - [facility] 08/21/2024 21:52:18 OBGyn Episode No OBEpisode recorded.
== END 2024-10-02 16:50 | disposition home or self-care (01) ==
LOC: HO.HMCFM 14:40
PROVIDERS: PCP Nurse Practitioner Family; Visit Provider Nurse Practitioner Family
DX: K80.01 Calculus of gallbladder with acute cholecystitis with obstruction (principal); R79.89 Other specified abnormal findings of blood chemistry

== ENCOUNTER → 2024-10-02 14:40 | Outpatient (BNVA) | payer OTHER, SELFPAY | PROVIDERS: PCP Nurse Practitioner Family; Visit Provider Nurse Practitioner Family | DX: Z13.89 Encounter for screening for other disorder (principal) ==

== ENCOUNTER 2024-11-03 09:03 | Outpatient (AMB) | payer OTHER, SELFPAY ==
--- NOTE | 2024-11-03 09:15 | MHC.OFFVIS ---
Vital Signs 11/03/24 09:20 Height 5 ft 2 in Weight 185 lb BMI 33.8 BP 116/78 Blood Pressure Location Lt brachial Position Sitting Pulse 97 Intake Visit Reasons: Calculus of gallbladder with acute cholecystitis Intake Note: Patient is seen in office for calculus of the gallbladder with acute cholecystitis. Pt c/o: one month ago was in [place] and was seen in the ER, had ultrasound and was told she has gallstones, was admitted due to other issues (pancreatitits) currently has a stent in place. 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 While on vacation in a [place], she developed jaundice and severe upper abdominal pain. The pain was felt in both the right and left upper quadrants. Workup in the emergency department in [place] revealed gallstone pancreatitis. She subsequently went underwent ERCP with removal of the obstructing gallstone. Because of her needs a travel stent was left in place as well. She continues to have abdominal pain in his on a restricted diet but continues to have minimal appetite with nausea and vomiting if she overeats. She denies any fever or chills. The jaundice has subsequently cleared. She presents today for discussion regarding cholecystectomy. [facility] Medical History Bipolar 1 disorder Anxiety and depression Surgical History Hx of breast reduction, elective (~10/2021) Family History Maternal Grandmother Substance abuse Breast cancer Maternal Grandfather Lung cancer Social History Household Members: Spouse Both parents involved: No Caregiver staying overnight: No Housing: House Are you a primary child care centre director to a significant other at home: No Do you presently have visiting nurse or other home services: No 75 years or older and lives alone: No Alcohol intake: current Alcohol intake frequency: a few times a month Patient Tobacco Use Status: Never used Tobacco e-Cigarette/Vaping Use: Never Used Second Hand Smoke Exposure: No Substance Use Type: Marijuana service: No Current occupational status: employed 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 Cognitive needs: No Hearing needs: No Vision needs: No Review of Systems Const All systems reviewed & are unremarkable except as noted in HPI and below Physical Exam Vital Signs: Last Vital Signs Pulse 97 11/03/24 09:20 BP 116/78 11/03/24 09:20 BMI result Body Mass Index 33.8 Const General: cooperative and no acute distress Nutritional Appearance: well nourished Orientation/consciousness: patient oriented x3 Limitations: no limitations HEENT Head: Yes normocephalic and Yes atraumatic Ears: hearing grossly normal bilaterally Resp Effort & Inspection: normal respiratory effort, no audible wheezes, no cough and no respiratory distress Cardio Jugular venous distension: no JVD GI Inspection: Yes normal to inspection Palpation (GI): Soft to palpation, Tenderness to palpation present (GI) in the LUQ and in the RUQ; Rolon's sign negative, no guarding, not rigid and No hepatosplenomegaly present Skin Other: Warm, dry, no rash Neuro General: patient oriented x3 Extrem General: Yes no clubbing, cyanosis or edema Assessment & Plan Assessment & Plan (1) Acute gallstone pancreatitis: Code(s): K85.10 - Biliary acute pancreatitis without necrosis or infection Category: Medical (2) Cholelithiasis and acute cholecystitis with obstruction: Code(s): K80.01 - Calculus of gallbladder with acute cholecystitis with obstruction Category: Medical Plan 29-year-old female patient with a known history of gallstone pancreatitis presenting for consideration for laparoscopic or possible open cholecystectomy following a recent hospitalization in [place]. Examination today does reveal some tenderness in both the left and right upper quadrant which could be a result of the residual pancreatitis. I recommended repeating a CT abdomen and pelvis and obtaining laboratories including liver panel to evaluate the pancreatitis. I reviewed the risks, benefits and alternatives of laparoscopic or possible open cholecystectomy and she consents to the surgery. Orders: Orders Complete Blood Count Auto Diff Today K85.10 - Biliary acute pancreatitis without necrosis or infection Comprehensive Met. Panel Today K80.01 - Calculus of gallbladder with acute cholecystitis with obstruction, K85.10 - Biliary acute pancreatitis without necrosis or infection Liver Panel Today K80.01 - Calculus of gallbladder with acute cholecystitis with obstruction, K85.10 - Biliary acute pancreatitis without necrosis or infection CT abdomen pelvis w IV con Today K80.01 - Calculus of gallbladder with acute cholecystitis with obstruction, K85.10 - Biliary acute pancreatitis without necrosis or infection Coding Level of Care Code New Pt Level 4 (80737) Diagnoses Acute gallstone pancreatitis K85.10 Cholelithiasis and acute cholecystitis with obstruction K80.01
[2024-11-03 09:20] VITALS: BP 116/78; PULSE 97; BMI 33.8
--- OUTSIDE RECORDS SUMMARY | 2024-11-03 09:21 | XMS_ITS | Clinical Summary ---
Author Organization [facility] Address [address] [place] [address] Care Team Providers Care General Handling Supervisor Name Role Phone Unavailable Primary Care Provider Unavailabl e Source Comments PLEASE NOTE, if this patient is a minor, it may be UNLAWFUL to discuss sensitive information that is contained in these records (such as FAMILY PLANNING, MENTAL HEALTH or SUBSTANCE ABUSE) with the minor patient's parent or other person without the patient's specific authorization.[facility] Social History Tobacco Use Types Packs/Day Years Used Date Smoking Tobacco: Never Assessed Social Connections Answer Date Recorded Connectedness 0 01/02/2024 Financial Resource Strain Answer Date R ecorded Financial Resource Strain 0 2020 Stress Answer Date Recorded Stress 0 02/25/2021 Physical Activity Answer Date Recorded Physical Activity 0 02/25/2021 Food Insecurity Answer Date Recorded Food 0 01/16/2024 Transportation Needs Answer Date Record ed Transportation 0 02/25/2021 Housing Stability Answer Date Recorded Housing 0 02/25/2021 Safety and Environment Answer Date Krishna rded Safety 0 02/25/2021 Utilities Answer Date Recorded Utilities 0 02/25/2021 Employment Answer Date Recorded Stress 0 01/02/2024 Comments Unknown Sex and Gender Information Value Date Recorded Sex Assigned at Not on file Legal Sex Female 6:59 PM PDT Gender Identity Not on file Sexual Orientation Not on file Plan of Treatment Not on file
--- OUTSIDE RECORDS SUMMARY | 2024-11-03 09:21 | XMS_ITS | Data Portability ---
Author Organization [place] - [facility] , [facility] Address [address] [place] [address] Assessment Encounter Date Assessment Date Assessment LastModified [...] Orders Lamictal 150 mg tablet 2024 025 [facility] #13669, [address] [place], [place], [id number], 10:00:07 sertraline 100 mg tablet 2024 025 [email or web address] #00161, [address] [place], [place], [id number], 5 10:00:11 bupropion HCl XL 150 mg 24 hr tablet, extended release 2024 025 [email or web address] #95245, [address] [place], [place], [id number], 5 10:00:07 Lamictal 150 mg tablet 2024 025 [facility] #40871, [address] [place], [place], [id number], 5 10:02:22 bupropion HCl XL 150 mg 24 hr tablet, extended release 2024 025 [facility] #39191, [address] [place], [place], [id number], 5 10:02:22 sertraline 100 mg tablet 2024 025 [facility] #23271, [address] [place], [place], [id number], 5 10:02:26 Patient TargetsNo targets recorded. Patient InstructionsNo instructions recorded. Reason for Referral None Reported. Problems Name Problem SNOMED Code Status Onset Date Resolution Date Notes Provider Name and Address Organization Details Recorded Time Anxiety 41525395 Active [address] [facility] [address], [address], [place] [facility] 5 09:59:17 Depressive disorder 98193555 Active [address] [facility] [address], [address], [place] [facility] 5 09:59:22 Problem [...] 1 tablet every day by oral route. 025 active Not [...] SNOMED-CT Code Diagnosis ICD10 Code Diagnosis Note [id number] Esha PresleyAshley [address] [address] 05/23/2024 09:56:59 05/23/2024 16:02:36 Generalized anxiety disorder 54592180 F41.1 [id number] Jaqueline Culp [address] [address] 08/21/2024 09:56:57 08/22/2024 01:24:22 Repeated prescription [id number] Z76.0 Generalize d anxiety disorder 38122866 F41.1 Continue Lamictal per RXContinue Sertraine per [...] Name 05/23/2024 2 *SELF PAY* Nelida Pryfogle [id number] Nelida Pryfogle 08/21/2024 [facility] Nelida Pryfogle [id number] Nelida Pryfogle 05/23/2024 1 *SELF PAY* Nnamdi adler Pryfogle 08/21/2024 1 [facility] Nelida Pryfogle [id number] Nelida Pryfogle Notes Date Note Type Note Provider Name and Address Organization Details Recorded Time 05/23/2024 text/html Call connected, patient greeted. Patient name, , telephone number and location verified verbally with the patient. Telemedicine limitations reviewed and verbal consent obtained to treat. Clinician attests they are physically located in the following state at the time of visit: [place]. CC: Medication Refill HPI: Patient is a [...] eliciting symptoms of Covid LAUREN Martinez 1 [facility] [address], [place], [address], [place] [facility] 05/23/2024 10:02:46 08/21/2024 text/html Call connected, patient greeted. Clinician introduced along with credentials Patient name, , telephone number, and location verified verbally with the patient. Telemedicine limitations reviewed, answered all questions the patient had about the telehealth interaction, and verbal consent obtained to treat. Clinician attests they are physically located in the following state at the time of visit: [place] physical location at the time of our visit is in the state of [place] CC Medication RefillCC anxiety HPI 29 yo [...] greater then 5 years LAUREN Patrick 1 [facility] [address], [place], [address], [facility] 08/21/2024 21:52:18 OBGyn Episode No OBEpisode recorded.
== END 2024-11-03 10:01 | disposition home or self-care (01) ==
LOC: HO.HGS 09:04
PROVIDERS: PCP Nurse Practitioner Family; Visit Provider Surgery
DX: K85.10 Biliary acute pancreatitis without necrosis or infection (principal); K80.01 Calculus of gallbladder with acute cholecystitis with obstruction
CPT/HCPCS: 99204

== ENCOUNTER 2024-11-03 09:03 | Outpatient (REF) | payer OTHER, SELFPAY ==
[2024-11-03 10:09] LABS: MANUAL DIFF FLAG NO
[2024-11-03 10:46] LABS: Hematocrit 40.0 % (37.0-47.0); Hemoglobin 13.2 g/dl (12.0-16.0); Imm Gran Abs Auto 0.05 X10*3/uL (0.00-0.03); Imm Gran Pct Auto 0.9 % (0.0-0.4); Lymphocytes Absolute Auto 2.3 X10*3/uL (1.2-4.9); Mean Corpuscular HGB Conc 33.0 g/dl (31.0-35.0); Mean Corpuscular Hemoglobin 27.7 pg (27.0-33.0); Mean Corpuscular Volume 84.0 fL (80.0-98.0); NRBC Abs Auto 0.000 X10*3/uL (0.0-0.012); NRBC Pct Auto 0.0 /100WBC (0.0-0.2); Platelet Count 380 X10*3/uL (160-400); Red Blood Count 4.76 X10*6/uL (4.20-5.50); White Blood Count 5.5 X10*3/uL (4.8-10.8)
[2024-11-03 11:10] LABS: Alanine Aminotransferase 73 U/L (0-31); Albumin Level 4.7 g/dL (3.5-5.0); Alkaline Phosphatase 91 U/L (39-117); Anion Gap 13 (12-20); Aspartate Amino Transferase 33 U/L (5-31); Blood Urea Nitrogen 9 mg/dL (9-16); Calcium 9.8 mg/dL (8.4-10.2); Carbon Dioxide 25 mmol/L (22-29); Chloride 108 mmol/L (96-108); Estimated Glomerular Filt Rate > 60; Potassium 3.9 mmol/L (3.3-5.1); Sodium 142 mmol/L (135-145); Total Protein 7.6 g/dL (6.5-8.0)
== END 2024-11-03 09:04 | disposition home or self-care (01) ==
LOC: HO.LAB 09:03
PROVIDERS: PCP Nurse Practitioner Family; Visit Provider Surgery
DX: K80.01 Calculus of gallbladder with acute cholecystitis with obstruction (principal); K85.10 Biliary acute pancreatitis without necrosis or infection; R10.11 Right upper quadrant pain; R10.12 Left upper quadrant pain; Z79.899 Other long term (current) drug therapy
CPT/HCPCS: 36415; 80053; 82248; 85025

== ENCOUNTER 2024-11-09 12:25 | Outpatient (REF) | payer OTHER, SELFPAY ==
--- NOTE | ~2024-11-09 | CT_ITS ---
EXAMINATION: CT ABDOMEN PELVIS WITH IV CONTRAST HISTORY: K80.01 - Calculus of gallbladder with acute cholecystitis with obstruction. History of pancreatitis. COMPARISON: There are no prior studies for available comparison. TECHNIQUE: CT scan of the abdomen and pelvis was performed following administration of 85 mL Omnipaque 350 using standard departmental protocol. Coronal and sagittal reformatted images were generated and reviewed. Oral contrast material was not administered at the request of the referring physician. This CT exam was performed with one or more of the following dose reduction techniques: automated exposure control, adjustment of the mA and/or kV according to patient size, use of iterative reconstruction technique. DLP: 571 mGy-cm FINDINGS: LOWER CHEST: The visualized lung bases are clear. There is no pleural effusion. CARDIOVASCULATURE: The heart is normal in size. There is no pericardial effusion. LIVER: The liver is normal in size and contour. No liver mass is identified. The hepatic and portal veins are patent. GALLBLADDER / BILE DUCTS: No calcified gallstones are identified. There is no pericholecystic inflammatory stranding. A biliary stent is noted in satisfactory position. SPLEEN: The spleen is normal in size. No focal splenic lesion is identified. PANCREAS: The pancreas is unremarkable in appearance. There is a 1.5 cm cystic structure adjacent to the pancreatic tail and gastric fundus which may represent a pseudocyst. ADRENAL GLANDS: Within normal limits. KIDNEYS/RETROPERITONEUM: No renal calculi are identified. There is no hydronephrosis. No renal masses are identified. LYMPH NODES: No abdominal or pelvic lymphadenopathy. VASCULATURE: The abdominal aorta is normal in caliber. MESENTERY/PERITONEUM: No free fluid. There is nodular infiltration of the fat of the gastrocolic ligament. There is no free intraperitoneal gas. STOMACH: The stomach is unremarkable. SMALL BOWEL: The small bowel is normal in caliber. COLON: The colon is unremarkable. APPENDIX: Normal. URINARY BLADDER/PELVIC ORGANS: The urinary bladder is collapsed, limiting evaluation. The uterus and left ovary are unremarkable. There is an involuting right ovarian follicle. BONES / SOFT TISSUES: No suspicious bony or soft tissue abnormalities. CT/CT abdomen pelvis w IV con IMPRESSION: 1. No calcified gallstones are identified. There is no pericholecystic inflammatory stranding. Indwelling biliary stent. 2. Nodular infiltration of the fat of the gastrocolic ligament. This could represent the sequela of pancreatitis although omental caking could also have this appearance. Clinical correlation is recommended. If cholecystectomy is planned, direct visualization of this region is recommended. 3. 1.5 cm cystic structure adjacent to the pancreatic tail and gastric fundus which may represent a pseudocyst given the patient's history of pancreatitis. Electronically signed by: Jos Solis MD 11/09/2024 01:55 PM EDT
--- OUTSIDE RECORDS SUMMARY | 2024-11-09 13:13 | XMS_ITS | Data Portability ---
Author Organization [place] - [facility] , [facility] Address [address] [place] [address] Assessment Encounter Date Assessment Date Assessment LastModified [...] Orders Lamictal 150 mg tablet 2024 025 [facility] #49313, [address] [place], [place], [id number], 10:00:07 sertraline 100 mg tablet 2024 025 [facility] #48400, [address] [place], [place], [id number], 5 10:00:11 bupropion HCl XL 150 mg 24 hr tablet, extended release 2024 025 [facility] #95724, [address] [place], [place], [id number], 5 10:00:07 Lamictal 150 mg tablet 2024 025 [facility] #01422, [address] [place], [place], [id number], 5 10:02:22 bupropion HCl XL 150 mg 24 hr tablet, extended release 2024 025 [facility] #95155, [address] [place], [place], [id number], 5 10:02:22 sertraline 100 mg tablet 2024 025 [facility] #73606, [address], [place], [id number], 5 10:02:26 Patient TargetsNo targets recorded. Patient InstructionsNo instructions recorded. Reason for Referral None Reported. Problems Name Problem SNOMED Code Status Onset Date Resolution Date Notes Provider Name and Address Organization Details Recorded Time Anxiety 26225838 Active 2024 Esha Ghotra [facility] [address], [address], [place] [facility] 5 09:59:17 Depressive disorder 84316193 Active 2024 Esha Ghotra [facility] [address], [address], [place] [facility] 5 09:59:22 Problem [...] SNOMED-CT Code Diagnosis ICD10 Code Diagnosis Note [id number] Esha PresleyAshley [address] [address] 05/23/2024 09:56:59 05/23/2024 16:02:36 Generalized anxiety disorder 32919036 F41.1 [id number] Jaqueline Culp [address] [address] 08/21/2024 09:56:57 08/22/2024 01:24:22 Repeated prescription [id number] Z76.0 Generalize d anxiety disorder 01622928 F41.1 Continue Lamictal per RXContinue Sertraine per [...] Name 05/23/2024 2 *SELF PAY* Nelida Pryfogle [id number] Nelida Pryfogle 08/21/2024 [facility] Nelida Pryfogle [id number] Nelida Pryfogle 05/23/2024 1 *SELF PAY* Nnamdi adler Pryfogle 08/21/2024 1 [facility] Nelida Pryfogle [id number] Nelida Pryfogle Notes Date Note Type [...] eliciting symptoms of Covid LAUREN Martinez 1 [facility] [address], [place], [address], [place] [facility] 05/23/2024 10:02:46 08/21/2024 [...] state at the time of visit: [place] location at the time of our visit is in the state of [place] CC Medication RefillCC anxiety HPI 29 yo [...] greater then 5 years LAUREN Patrick 1 [facility] [address], [place], [address], [facility] 08/21/2024 21:52:18 OBGyn Episode No OBEpisode recorded.
--- OUTSIDE RECORDS SUMMARY | 2024-11-09 13:13 | XMS_ITS | Encounter Summary ---
Author Organization [facility] Address [address] [facility] [address] [place] [address] Phone Care Team Providers Care Neurology Hospitalist Name Role Phone Unknown, Unknown Primary Care Provider Vicki hall Encounter Details Date Type Department Care Team (Late st Contact Info) Description 10/27/2021 Procedure Pass BWF Periop 1st floor [address] [place] [address] Social History Tobacco Use Types Packs/Day Years Used Date Smoking Tobacco: Never Smokeless Tobacco: Never Alcohol Use Standard Drinks/Week Comments Yes 0 (1 standard drink = 0.6 oz pur e alcohol) 2 drinks a week Comments No Sex and Gender Information Value Date Recorded Sex Assigned at Female 03/27/2021 11:32 AM EST Legal Sex Female 10:13 PM EDT Gender Identity Non-binary 03/27/2021 11:32 AM EST Sexual Orientation Bisexual 03/27/2021 11 :32 AM EST documented as of this encounter Plan of Treatment Not on file documented as of this encounter Visit Diagnoses Not on filedocumented in this encounter Additional Health Concerns Assessment Noted Time PHQ-2 Depression Total Score: 2 10/26/19 16 2:42 PM EDT documented as of this encounter Care Teams Neurology Hospitalist Relationship Specialty Start Date End Date Unknown, Unknown, PCP - General 03/30/19 documented as of this encounter Additional Source Comments The information contained in this document represents components of the legal health record. It is not the complete legal health record.[facility]
--- OUTSIDE RECORDS SUMMARY | 2024-11-09 13:13 | XMS_ITS | Clinical Summary ---
Author Organization [facility] Address [address] [place] [address] Care Team Providers Care Cleaner Signs Name Role Phone Unavailable Primary Care Provider [...]
[2024-11-09] MEDS: iohexoL 350 MG/ML 100 ML INFUS..BTL 85 ML IV (13:39)
== END 2024-11-09 12:26 | disposition home or self-care (01) ==
LOC: HO.CT 12:25
PROVIDERS: PCP Nurse Practitioner Family; Visit Provider Surgery
DX: K80.01 Calculus of gallbladder with acute cholecystitis with obstruction (principal); K85.10 Biliary acute pancreatitis without necrosis or infection
CPT/HCPCS: 74177; Q9967

== ENCOUNTER → 2024-11-09 12:27 | Outpatient (BNV) | payer OTHER, SELFPAY | PROVIDERS: PCP Nurse Practitioner Family; Visit Provider Radiology Diagnostic Radiology | DX: K86.2 Cyst of pancreas (principal); Z96.89 Presence of other specified functional implants | CPT/HCPCS: 74177 ==

== ENCOUNTER 2024-11-13 05:45 | Day surgery (SDC) | payer OTHER, SELFPAY ==
[2024-11-11 16:04] VITALS: BMI 33.8
[2024-11-13] VITALS (11 sets, daily range): BP systolic 112–134; BP diastolic 66–80; PULSE 69–97; RESP 16–20; TEMP 36.8–37; O2SAT 95–100; BMI 34.1; BMI 34.0
[2024-11-13 06:33] LABS: UPreg QC Valid YES
[2024-11-13] MEDS: Lactated Ringers 1,000 ML 100 ML IVCONT (06:35)
--- NOTE | 2024-11-13 06:59 | MHC.SHP ---
Pre-Procedural Eval Section A - 24 Hr Update-Section A only Date of Service: 11/13/24 The patient is an INPATIENT: No Changes since office visit: Yes Patient answered all questions; No Cold of Flu in the past 2 weeks, No New Medical Problems and No Changes in Medication The patient has been examined within 24 hours of the surgical procedure. The History & Physical has been completed within 30 days and I have reviewed it.: Yes Section B - Complete if H&P > 30 days Chief Complaint: Calculus of gallbladder with acute cholecystitis Allergies: Allergies Allergy/AdvReac Type Severity Reaction Status Date / Time No Known Allergies Allergy Verified 11/13/24 06:22 Plan Diagnosis/Plan: Unchanged I have reviewed the history and physical and performed a pertinent physical examination on my patient. No changes have occurred unless specified. Time Spent With Patient Time: Total time managing care of this patient today ____ minutes.
--- NOTE | 2024-11-13 07:47 | HO.ANESPROP2 ---
HPI - Anesthesia Eval Consult details Narrative: 29 yo F presenting for lap gloria PMFSH Active Problems Active Problems: All Active Problems Acute gallstone pancreatitis (Acute) Cholelithiasis and acute cholecystitis with obstruction (Acute) HLD (hyperlipidemia) (Acute) Vitamin D deficiency (Acute) Elevated LFTs (Acute) Family history of breast cancer (Acute) Constipation (Acute) Hearing loss (Acute) Encounter for general adult medical examination with abnormal findings (Acute ~09/23/24) Need for Tdap vaccination (Acute) Laboratory exam ordered as part of routine general medical examination (Acute) Dysmenorrhea (Acute) Obesity (BMI 30-39.9) (Acute) Bipolar 1 disorder (Acute) Past Medical History Medical History Bipolar 1 disorder Anxiety and depression Family History Family History Maternal Grandmother Substance abuse Breast cancer Maternal Grandfather Lung cancer Family history of problems with anesthesia: No Surgical History Surgical History History of ERCP (10/05/24) Hx of breast reduction, elective (~10/2021) History of Problems with Anesthesia: No Social History Social History Household Members: Spouse Housing: House Are you a primary managed care director to a significant other at home: No Do you presently have visiting nurse or other home services: No Alcohol intake: current Alcohol intake frequency: holidays/special occasions only Patient Tobacco Use Status: Never used Tobacco e-Cigarette/Vaping Use: Never Used Second Hand Smoke Exposure: No Use of substances other than those prescribed or required for medical reasons: Yes Substance Use Type: Marijuana Substance Use Type Other:: edibles Substance Use Frequency: Socially Have you been hit, kicked, punched, or otherwise hurt by someone within the past year? 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 Cognitive needs: No Hearing needs: No Vision needs: No Meds Allergies Allergy/AdvReac Type Severity Reaction Status Date / Time No Known Allergies Allergy Verified 11/13/24 06:22 Active Medications: Current Medications Lactated Ringer's (Lr) 1,000 mls @ 100 mls/hr IVCONT .Q10H ROMEL Last Admin: 11/13/24 06:35 Dose: 100 mls/hr Home Medications ?Medication ?Instructions ?Recorded ?Confirmed ?Last Taken ?Type bupropion HCl 100 mg tablet 100 mg PO DAILY 09/23/24 11/13/24 Unknown History lamotrigine 150 mg tablet 150 mg PO DAILY 09/23/24 11/13/24 Unknown History (Lamictal) sertraline 50 mg tablet (Zoloft) 50 mg PO DAILY 09/23/24 11/13/24 Unknown History Exam Exam Date and Time: 11/13/24724 Height,Weight and Vital Signs: Height 5 ft 2 in Weight 84.4 kg Last Vital Signs Temp 98.6 F 11/13/24 06:35 Pulse 78 11/13/24 06:35 Resp 16 11/13/24 06:35 BP 112/77 11/13/24 06:35 Pulse Ox 97 11/13/24 06:35 O2 Del Method Room Air 11/13/24 06:35 Pertinent Lab Results Pertinent Lab Results: Laboratory Tests 11/13/24 06:23 Urine Test NEGATIVE Airway Mallampati Class: I TM Dist: >3cm Neck ROM: Full Loose/Missing/Broken Teeth: No (patient denies any loose or broken teeth) Heart: S1S2 Lungs: CTAB Assessment and Plan Assessment Anesthesia Assessment: Anesthesia Plan Discussed and Chart Reviewed Final Anesthetic Review Family History of Problems with Anesthesia: No History of Problems with Anesthesia: No NPO: Yes ASA Class: II Final Preanesthetic Review: No Changes in Pt Med Stat, Meds/Allgs Chart Reviewed, Consent Obtained/Reviewed and Anes Risks/Benef Reviewed Patient Risk: Low Procedure Risk: Intermediate Anesthetic Plan Anesthetic Plan: GA and Agree w/ Assess. and Plan Disposition: Standard PACU
[2024-11-13] MEDS: oxyCODONE HCl Immed Release 5 MG TABLET PO (09:41)
--- NOTE | 2024-11-13 09:47 | W.PM.OPN ---
Operative Note Operative Note Date of Service: 11/13/24 Narrative: Preoperative diagnosis: Gallstone pancreatitis, choledocholithiasis, cholelithiasis Postoperative diagnosis: Same Procedure: Laparoscopic cholecystectomy Surgeon: Jones Quinn MD Powertrain Control Systems Engineer: Buddy Matute PA-C, Kira Panye, MS-3 Anesthesia: General endotracheal Indications for procedure: 29-year-old female patient who developed gallstone pancreatitis while in [place], status post ERCP with stent placement. Presents now for elective laparoscopic cholecystectomy. Operative findings: Dense adhesions to undersurface of gallbladder consistent with prior episodes of cholecystitis, multiple gallstones within the gallbladder Specimen: gallbladder Estimated blood loss: Less than 2 mL Complications: None Procedure details: Patient was brought to the OR and placed in a supine position. After administering general anesthesia the patient's abdomen was prepped with ChloraPrep and draped in a sterile fashion. A surgical time-out was called the consent confirmed. Patient received preoperative antibiotics and Venodyne boots were in place. Local anesthesia consisting of 0.5% Sensorcaine without epinephrine was infiltrated in a periumbilical region. A 5 mm incision was made above the umbilicus in a transverse fashion. The Veress needle was then inserted while elevating abdominal cavity with towel clips. After positive drop test the abdomen was insufflated to a pressure of 15 mm of mercury. The Veress needle was then removed and a 5 mm trocar inserted. The camera was inserted in the abdomen explored. A 12 mm trocar was then placed in the epigastrium. Two 5 mm trocars placed in the right upper quadrant by the assistant community manager. The patient was placed in reverse Trendelenburg positioning and rotated to the left. The gallbladder was grasped with the fundus and retracted cephalad by the assistant community manager. Adhesions were taken down using the Dolphin dissector. The infundibulum was then grasped and retracted away from the liver bed, also by the assistant community manager. The Dolphin dissector was then used by the surgeon to dissect the peritoneum off the infundibulum to reveal the junction with the cystic duct. Cystic artery was noted slightly medial and posterior to the cystic duct. After obtaining a critical view the cystic duct was doubly clipped and divided. The cystic artery was then doubly clipped and divided. The gallbladder was then dissected off the liver bed using electrocautery with an L hook. Hemostasis was assured all times using the electrocautery. When the gallbladder is completely dissected off the liver bed was placed in an Endo-Catch bag and brought out through the epigastric incision. The gallbladder was sent to pathology for further examination. The abdomen was then re-examined. The liver bed was irrigated and suctioned dry. No bleeding or bile leak could be identified. CO2 was then evacuated and all trocars removed. Fascia was closed at the epigastric incision using a [id number] 0 Polysorb suture. Skin was closed in all incisions using a subcuticular 4 0 Polysorb suture by both the surgeon and assistant community manager. Sterile dressings consisting of Steri-Strips, 2 x 2 gauze, and Tegaderm were then applied. The patient tolerated the procedure well. Sponge instrument and needle counts reported as correct. The patient was transferred to PACU in stable condition.
== END 2024-11-13 10:10 | disposition home or self-care (01) ==
PROVIDERS: Nurse Practitioner; PCP Nurse Practitioner Family; Visit Provider Surgery
PROC: 0FT44ZZ Resection of Gallbladder, Percutaneous Endoscopic Approach (ICD-10-PCS; CPT 47562; principal; 2024-11-13 07:30)
DX: K80.10 Calculus of gallbladder with chronic cholecystitis without obstruction (principal); K85.10 Biliary acute pancreatitis without necrosis or infection; K82.8 Other specified diseases of gallbladder; Z95.820 Peripheral vascular angioplasty status with implants and grafts; Z79.899 Other long term (current) drug therapy
CPT/HCPCS: 47562; 81025; 88304; J0131; J1100; J1885; J2003; J2250; J2371; J2405; J2704; J3010

== ENCOUNTER → 2024-11-13 05:45 | Outpatient (BNV) | payer OTHER, SELFPAY | PROVIDERS: PCP Nurse Practitioner Family; Visit Provider Surgery | DX: K85.10 Biliary acute pancreatitis without necrosis or infection (principal) | CPT/HCPCS: 47562 ==

== ENCOUNTER 2024-11-24 10:57 | Outpatient (AMB) | payer OTHER, SELFPAY ==
--- NOTE | 2024-11-24 11:02 | A.OFFVIS_ITS ---
Vital Signs 11/24/24 11:07 Height 5 ft 2 in Weight 185 lb 3.013 oz BMI 33.9 Respiration 16 Intake Visit Reasons: S/P lap gloria Intake Note: Patient is seen in office for post op assessment post Laparoscopic cholecystectomy Pt c/o: admits to sore, bruise and tender, denies redness, discharge or other concerns surgery:11/13/24 Guest Advisor Required: No Accompanied by: Family/Other Allergies No Known Allergies Allergy (Verified 11/24/24 11:07) Medication List - Last Reconciled 11/24/24 by Jones Quinn MD bupropion HCl 100 mg PO DAILY cholecalciferol (vitamin D3) 25 mcg PO DAILY lamotrigine (Lamictal) 150 mg PO DAILY oxycodone 5 mg PO Q6H PRN sertraline (Zoloft) 50 mg PO DAILY HPI Comments Details: 29-year-old female patient returning 1 week following laparoscopic cholecystectomy. She has a prior history of choledocholithiasis and pancreatitis which developed while in [place]. She subsequently required ERCP and stent placement performed in [place]. She returned to the [facility] underwent laparoscopic cholecystectomy on 11/13/2024. She returns feeling well with no abdominal pain, nausea or vomiting. She does have some itchiness in the incision but denies any bleeding or discharge. [facility] Medical History Choledocholithiasis Bipolar 1 disorder Anxiety and depression Surgical History Hx laparoscopic cholecystectomy (11/13/24) History of ERCP (10/05/24) Hx of breast reduction, elective (~10/2021) Family History Maternal Grandmother Substance abuse Breast cancer Maternal Grandfather Lung cancer Social History Household Members: Spouse Both parents involved: No Caregiver staying overnight: No Housing: House Are you a primary career technology teacher to a significant other at home: No Do you presently have visiting nurse or other home services: No 75 years or older and lives alone: No Alcohol intake: current Alcohol intake frequency: holidays/special occasions only Comment: medicated Patient Tobacco Use Status: Never used Tobacco e-Cigarette/Vaping Use: Never Used Second Hand Smoke Exposure: No Substance Use Type: Marijuana service: No Current occupational status: employed 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 There is some irritation from the previous dressings which may be causing the itchiness. No hernia or discharge is noted. Neuro General: patient oriented x3 Extrem Other: No edema Assessment & Plan Assessment & Plan (1) Cholelithiasis and acute cholecystitis with obstruction: Code(s): K80.01 - Calculus of gallbladder with acute cholecystitis with obstruction Category: Medical Plan 29-year-old female patient returning 1 week following laparoscopic cholecystectomy for cholecystitis, cholelithiasis, choledocholithiasis. She previously underwent ERCP, sphincterotomy, stone removal, and stent placement. I recommended evaluation by the Gastroenterology Department for stent removal. She should continue to avoid lifting greater than 10 lb for 1 more week after which she may return to normal activity. She should follow up as needed. Orders: Referrals Gastroenterology Referral K80.01 - Calculus of gallbladder with acute cholecystitis with obstruction, K80.50 - Calculus of bile duct without cholangitis or cholecystitis without obstruction Coding Level of Care Code Global (44788) Diagnoses Cholelithiasis and acute cholecystitis with obstruction K80.01
[2024-11-24 11:07] VITALS: RESP 16; BMI 33.9
--- OUTSIDE RECORDS SUMMARY | 2024-11-24 11:44 | XMS_ITS | Clinical Summary ---
Author Organization [facility] Address [address] [place] [address] Care Team Providers Care Assistant Clinical Nurse Manager Name Role Phone Unavailable Primary Care Provider [...]
--- OUTSIDE RECORDS SUMMARY | 2024-11-24 11:44 | XMS_ITS | Encounter Summary ---
Author Organization [facility] Address [address] [place] [phone] Phone Care Team Providers Care Motion Picture Director Name Role Phone Unknown, Unknown Primary Care Provider Vicki hall Encounter Details Date Type Department Care Team (Late st Contact Info) Description 10/27/2021 Procedure Pass BWF Periop 1st floor [address] [place] [address] Social History Tobacco Use Types Packs/Day Years [...] documented as of this encounter Care Teams Motion Picture Director Relationship Specialty Start Date End Date Unknown, Unknown, PCP - General 03/30/19 documented as of this encounter Additional Source Comments The information contained in this document represents components of the legal health record. It is not the complete legal health record.[facility]
== END 2024-11-24 11:48 | disposition home or self-care (01) ==
LOC: HO.HGS 10:58
PROVIDERS: PCP Nurse Practitioner Family; Visit Provider Surgery
DX: K80.01 Calculus of gallbladder with acute cholecystitis with obstruction (principal)
CPT/HCPCS: 99024

== ENCOUNTER 2024-12-09 09:39 | Outpatient (AMB) | payer OTHER, SELFPAY ==
--- NOTE | 2024-12-09 09:42 | A.OFFVIS_ITS ---
Vital Signs 12/09/24 09:48 Height 5 ft 2 in Weight 180 lb 12.465 oz BMI 33.1 BP 105/75 Blood Pressure Location Lt brachial Position Sitting Pulse 86 Intake Visit Reasons: removal ERCP with stent placement Marketing Development Representative Required: No Allergies No Known Allergies Allergy (Verified 12/09/24 09:48) HPI Comments Details: 29 y.o F with PMH of anxiety, depression, bipolar disorder, who is here for choledocholithiasis. Pt seen as one time consult in absence of Dr Sanders. Was in [place] this September to attend a concert. Had a sudden onset attack of R sided pain with N/V after fatty food. Of note did have elevated LFTs PRIOR TO going to [place] on 09/23. Hospitalized and admitted with choledocholithiasis. ERCP 10/05 with removal of stones but multiple small stones still left behind and therefore double pigtail stent placed. Course complicated by post ERCP pancreatitis req hospitalization for additional 15 days and 20 lbs weight loss in that duration. Pt now s/p lap gloria last month (Dr Quinn). Is now due to get the biliary stent out. [facility] Medical History Choledocholithiasis Bipolar 1 disorder Anxiety and depression Surgical History History of esophagogastroduodenoscopy (EGD) Hx laparoscopic cholecystectomy (11/13/24) History of ERCP (10/05/24) Hx of breast reduction, elective (~10/2021) Family History Maternal Grandmother Substance abuse Breast cancer Maternal Grandfather Lung cancer Social History Household Members: Spouse Both parents involved: No Caregiver staying overnight: No Housing: House Are you a primary care transition coordinator to a significant other at home: No Do you presently have visiting nurse or other home services: No 75 years or older and lives alone: No Alcohol intake: current Alcohol intake frequency: holidays/special occasions only Comment: medicated Patient Tobacco Use Status: Never used Tobacco e-Cigarette/Vaping Use: Never Used Second Hand Smoke Exposure: No Substance Use Type: Marijuana service: No Current occupational status: employed 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 Cognitive needs: No Hearing needs: No Vision needs: No Review of Systems Const All systems reviewed & are unremarkable except as noted in HPI and below Physical Exam Exam Exam: No apparent distress Nonicteric Abdomen soft, nondistended Alert and oriented x3, normal gait Vital Signs: Last Vital Signs Pulse 86 12/09/24 09:48 BP 105/75 12/09/24 09:48 BMI result Body Mass Index 33.1 Assessment & Plan Assessment & Plan (1) Choledocholithiasis: Code(s): K80.50 - Calculus of bile duct without cholangitis or cholecystitis without obstruction Category: Medical (2) History of biliary stent insertion: Code(s): Z98.890 - Other specified postprocedural states Category: Medical (3) Post-ERCP acute pancreatitis: Code(s): K91.89 - Other postprocedural complications and disorders of digestive system; K85.90 - Acute pancreatitis without necrosis or infection, unspecified Category: Medical Plan Pt with hx of choledocho requiring emergent ERCP in September while pt was in [place] - complicated post ERCP pancreatitis. Now s/p lap gloria last month. Feels back to baseline. Here to discuss biliary stent removal. Msg sent to book ERCP for cholangiogram to r/o residual stones farhat since cont with mild LFT elevation and removal of stent. Pt worried re risk of recurrent post ERCP panc but reviewed that this risk is typically with sphincterotomy and very minimal with repeat ercp being done to establish biliary clearance and remove the stent. Follow up after ercp with dr sanders Coding Level of Care Code New Pt Level 4 (04071) Diagnoses Choledocholithiasis K80.50 History of biliary stent insertion Z98.890 Post-ERCP acute pancreatitis K91.89; K85.90
[2024-12-09 09:48] VITALS: BP 105/75; PULSE 86; BMI 33.1
--- OUTSIDE RECORDS SUMMARY | 2024-12-09 10:28 | XMS_ITS | Clinical Summary ---
Author Organization [facility] Address [address] [place] [address] Care Team Providers Care Auto Battery Builder Name Role Phone Unavailable Primary Care Provider [...]
--- OUTSIDE RECORDS SUMMARY | 2024-12-09 10:28 | XMS_ITS | Encounter Summary ---
Author Organization [facility] Address [address] [facility] [address] [place] [phone] Phone Care Team Providers Care Contract Processor Name Role Phone Unknown, Unknown Primary Care Provider Vicki hall Encounter Details Date Type Department Care Team (Late st Contact Info) Description 10/27/2021 Procedure Pass BWF Periop 1st floor [address] [place] [address] Social History Tobacco Use Types Packs/Day Years [...] documented as of this encounter Care Teams Contract Processor Relationship Specialty Start Date End Date Unknown, Unknown, PCP - General 03/30/19 documented as of this encounter Additional Source Comments The information contained in this document represents components of the legal health record. It is not the complete legal health record.[facility]
== END 2024-12-09 10:29 | disposition home or self-care (01) ==
LOC: HO.HGI 09:39
PROVIDERS: PCP Nurse Practitioner Family; Visit Provider Internal Medicine
DX: K80.50 Calculus of bile duct without cholangitis or cholecystitis without obstruction (principal); Z98.890 Other specified postprocedural states; K91.89 Other postprocedural complications and disorders of digestive system; K85.90 Acute pancreatitis without necrosis or infection, unspecified
CPT/HCPCS: 99204

== ENCOUNTER 2024-12-30 12:48 | Day surgery (SDC) | payer OTHER, SELFPAY ==
--- OUTSIDE RECORDS SUMMARY | 2024-12-18 12:53 | XMS_ITS | Clinical Summary ---
Author Organization [facility] Address [address] [place] [address] Care Team Providers Care Mud Analysis Operator Name Role Phone Unavailable Primary Care Provider [...]
--- OUTSIDE RECORDS SUMMARY | 2024-12-18 12:53 | XMS_ITS | Encounter Summary ---
Author Organization [facility] Address [address] [facility] [address] [place] [phone] Phone Care Team Providers Care Edge Runner Name Role Phone Unknown, Unknown Primary Care Provider Vicki hall Encounter Details Date Type Department Care Team (Late st Contact Info) Description 10/27/2021 Procedure Pass BWF Periop 1st floor [address] [place] [address] Social History Tobacco Use Types Packs/Day Years [...] documented as of this encounter Care Teams Edge Runner Relationship Specialty Start Date End Date Unknown, Unknown, PCP - General 03/30/19 documented as of this encounter Additional Source Comments The information contained in this document represents components of the legal health record. It is not the complete legal health record.[facility]
--- OUTSIDE RECORDS SUMMARY | 2024-12-18 12:53 | XMS_ITS | Clinical Summary ---
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 09/26/2021 Active buPROPion (WELLBUTRIN XL) 150 MG ER 24 hr tablet Take 300 mg by mouth daily. 09/21/2021 Active buPROPion (WELLBUTRIN SR) 150 MG SR 12 hr tablet Take 150 mg by mouth daily. Active sertraline (ZOLOFT) 50 MG tablet Take 50 mg by mouth daily. Active lamoTRIgine (LAMICTAL) 150 MG IMMEDIATE release tablet Take 150 mg by mouth daily. Active oxyCODONE 5 MG immediate release tablet Take 1 tablet (5 mg total) by mouth every 4 (four) hours as needed for moderate pain. Partial fill ok 10 tablet 10/27/2021 Active Active Problems Problem Noted Date Diagnosed Date Anxiety 10/28/2015 Overview (10/28/2015): Treated at [facility] in [place] with both therapist and psychopharmacologist Depression 10/28/2015 Overview (10/28/2015): Treated at [facility] in [place] with therapist and psychiatrist. Sertraline 50 mg am, hydroxizine 25 mg am, lamictal 200 mg am, rare use of ativan 0.5mg prn (about once a month). Plans to continue to get meds from those providers. Will change insurance in November, thus advised her to check with those providers to see which insurance she would need to pick to still keep providers. Diaphoresis 10/28/2015 Overview (10/28/2015): Excess axillary sweating, she would like to try treatment with drysol. Is on sertraline which may also be contributory. 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 Unsure about vaccine status but agrees to get records. Never had pap, but never SA yet. Uses diva cup for menses, thus agreeable to [employer] exam and pap if tolerated. On lamictal for past year and no labs completed. Agrees to return for screening labs once her new insurance is set up. Assessment & Plan (10/28/2015 11:55 AM EDT): Given lamictal use, will check blood count, TSH, renal and hepatic fx in addition to lipid screen. Acne vulgaris 10/28/2015 Overview (10/28/2015): Cystic and scarring acne on face. We reviewed her current regimen and cleaning and hydrating recomendaitons given. Interested in treatment, and will try retin A (start in fall when not in sun regularly) and clinda prn cystic lesions. Reviewed that retinoid makes skin worse in first 8 weeks before better and that she should start nightly spaced out every 3-4 nights until skin tolerates and can increase up to daily as tolerated. Immunizations Immunization Administration Dates Next Due COVID-19 (Pre-02/11) Pfizer Vaccine, mRNA, PF 03/26/2021,08/24/2020,08/03/2020,2020 Family History Medical History Relation Comments Cancer Maternal Grandfather lung ca in 50s, smoker Heart disease Maternal Grandfather CABG in 70s Alcohol use disorder Maternal Grandmother Breast cancer Maternal Grandmother Stroke Paternal Grandfather Relation Status Comments Father Alive Maternal Grandfather Alive 70s in 2016 Maternal Grandmother Alive 70s in 2016 Mother Alive Paternal Grandfather (Age 67) Paternal Grandmother Alive 70s in 2016 Social History Tobacco Use Types Packs/Day Years Used Date Smoking Tobacco: Never Smokeless Tobacco: Never Alcohol Use Standard Drinks/Week Comments Yes 0 (1 standard drink = 0.6 oz pur e alcohol) 2 drinks a week Education Answer Date Recorded Are you interested in more education? Not on kathryn e 08/17/2022 Are you concerned about learning? Not on file 08/17/2022 No 08/17/2022 No 08/17/2022 Digital Access Answer Date Recorded No 09/17/2022 No 09/17/2022 No 09/17/2022 Reliable internet access at home? Not on file 09/17/2022 Device with a working camera? Not on file Comments No Sex and Gender Information Value Date Recorded Sex Assigned at Female 03/27/2021 11:32 AM EST Legal Sex Female 10:13 PM EDT Gender Identity Non-binary 03/27/2021 11:32 AM EST Sexual Orientation Bisexual 03/27/2021 11 :32 AM EST Last Filed Vital Signs Vital Sign Reading Time Taken Comments Blood Pressure 127/85 10/27/2021 12:45 PM EDT Pulse 100 10/27/2021 12:45 PM EDT Temperature 36.2 C (97.2 F) 10/27/2021 1:30 PM EDT Respiratory Rate 15 10/27/2021 12:45 PM EDT Oxygen Saturation 97% 10/27/2021 12:45 PM EDT Inhaled Oxygen Concentration - - Weight 86.2 kg (190 lb) 10/27/2021 6:42 AM EDT Height 157.5 cm (5' 2 ) 10/27/2021 6:42 AM EDT Body Mass Index 34.75 10/27/2021 6:42 AM EDT Plan of Treatment Health Maintenance Due Date Last Done Comments Adult Td,Tdap Booster 1995 HEPATITIS C SCREENING 2011 HIV ONE-TIME SCREENING (18-65 YEARS) 2011 DEPRESSION SCREENING 10/25/2016 10/26/2015 PAP SMEAR 10/26/2018 10/27/2015, 10/26/2015 COVID-19 VACCINE ( season) 2023 03/26/2021, 08/24/2020, 08/03/2020, Additional history exists SMOKING STATUS SCREENING (Once After 26 Yrs) Completed 10/27/2021 HEPATITIS A VACCINES Aged Out No long er eligible based on patient's age to complete this topic HIB VACCINES Aged Out No longer eligi ble based on patient's age to complete this topic MENINGOCOCCAL VACCINES (ACWY) Aged Out No longer eligible based on patient's age to complete this topic MENINGOCOCCAL VACCINES (B) Aged Out N o longer eligible based on patient's age to complete this topic PNEUMOCOCCAL VACCINES (0-49 years) Aged Out No longer eligible based on patient's age to complete this topic Medical Devices Not on file Procedures Procedure Name Priority Date/Time Associated Diagnosis Comments PAP TEST Routine 10/26/2015 12:00 AM EDT from Last 3 Months or Most Recently Relevant to Health Maintenance Results * Pap Smear (10/26/2015 12:00 AM EDT) 10/26/2015 10/27/2015 9:5 5 AM EDT Narrative SEE NARRATIVE - 11/10/2015 4:27 [place] [address] [employer] Cytology Report Patient Name: NELIDA FOUNTAIN : 1995 (Age: 20) Sex: F [place] [facility] [place] [facility] [place] Date of Collection: 10/26/2015 Date of Reported: 11/10/2015 16:27 Results to: Yennifer Ford MD, FINAL DIAGNOSIS A. CERVICAL, LIQUID BASED SPECIMEN: SPECIMEN ADEQUACY: Satisfactory for evaluation. INTERPRETATION: NEGATIVE FOR INTRAEPITHELIAL LESION OR MALIGNANCY. ADDITIONAL INFORMATION: This specimen was prescreened using the [employer] System. Electronically Signed Out By: KALIE Hahn(ASCP)MICK Cervical cytology is a screening test primarily for squamous cancers and precursors and has associated false-negative and false-positive results. New technologies such as liquid-based preparations may decrease but will not eliminate all false-negative results. Regular sampling and follow-up of unexplained clinical signs and symptoms are recommended to minimize false negative results. CLINICAL HISTORY Date of Last Menstrual Period: 10/01/15 first pap SPECIMEN SOURCE A: CERVICAL, LIQUID BASED SPECIMEN us Yennifer Ford MD, MPH CYTOLOGY ORDERABL ES Final Result SEE NARRATIVE from Last 3 Months or Most Recently Relevant to Health Maintenance Insurance PPO PPO PPO PPO PPO PPO PPO PPO [facility] PPO Advance Directives For more information, please contact: [phone] (9AM - 5PM [facility], Saturday-Saturday) Healthcare Agents on File Name Relationship Healthcare Agent Relationshi p Communication Destinee Fountain Mother Other (no proxy form on fi le) Tito Fountain Father Other (no proxy form on f ile) Care Teams Back Strip Machine Operator Relationship Specialty Start Date End Date Unknown, Unknown, PCP - General 03/30/19 Additional Source Comments The information contained in this document represents components of the legal health record. It is not the complete legal health record.[facility]
--- NOTE | 2024-12-28 14:57 | HO.ANESPROP2 ---
Documented by User: Lianne Arboleda NP 12/28/24 14:58 HPI - Anesthesia Eval Consult details Narrative: 29yo F for ERCP,with possible stent REMOVAL s/p lap gloria 10/2024 with GA-ETT 7 PMFSH Active Problems Active Problems: All Active Problems Post-ERCP acute pancreatitis (Acute) History of biliary stent insertion (Acute) Choledocholithiasis (Acute) Acute gallstone pancreatitis (Acute) Cholelithiasis and acute cholecystitis with obstruction (Acute) HLD (hyperlipidemia) (Acute) Vitamin D deficiency (Acute) Elevated LFTs (Acute) Family history of breast cancer (Acute) Constipation (Acute) Hearing loss (Acute) Encounter for general adult medical examination with abnormal findings (Acute ~09/23/24) Need for Tdap vaccination (Acute) Laboratory exam ordered as part of routine general medical examination (Acute) Dysmenorrhea (Acute) Obesity (BMI 30-39.9) (Acute) Bipolar 1 disorder (Acute) Past Medical History Medical History Choledocholithiasis Bipolar 1 disorder Anxiety and depression Family History Family History Maternal Grandmother Substance abuse Breast cancer Maternal Grandfather Lung cancer Family history of problems with anesthesia: No Surgical History Surgical History History of esophagogastroduodenoscopy (EGD) Hx laparoscopic cholecystectomy (11/13/24) History of ERCP (10/05/24) Hx of breast reduction, elective (~10/2021) History of Problems with Anesthesia: No Social History Social History Household Members: Spouse Housing: House Are you a primary hospice home care coordinator to a significant other at home: No Do you presently have visiting nurse or other home services: No Alcohol intake: current Alcohol intake frequency: does not drink Comment: medicated Patient Tobacco Use Status: Never used Tobacco e-Cigarette/Vaping Use: Never Used Second Hand Smoke Exposure: No Substance Use Type: Marijuana Substance Use Type Other:: gummies Have you been hit, kicked, punched, or otherwise hurt by someone within the past year? 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 Cognitive needs: No Hearing needs: No Vision needs: No Meds Allergies Allergy/AdvReac Type Severity Reaction Status Date / Time No Known Allergies Allergy Verified 12/09/24 09:48 Home Medications ?Medication ?Instructions ?Recorded ?Confirmed ?Last Taken ?Type bupropion HCl 100 mg tablet 100 mg PO DAILY 09/23/24 12/30/24 12/29/24 History lamotrigine 150 mg tablet 150 mg PO DAILY 09/23/24 12/30/24 12/29/24 History (Lamictal) sertraline 100 mg tablet 100 mg PO BID 12/09/24 12/30/24 12/29/24 History Exam Pertinent Lab Results Pertinent Lab Results: Laboratory Tests 11/03/24 11/03/24 10:06 10:07 WBC 5.5 Hgb 13.2 Hct 40.0 Plt Count 380 Sodium 142 Potassium 3.9 Chloride 108 Carbon Dioxide 25 BUN 9 Creatinine 0.82 Assessment and Plan Assessment Anesthesia Assessment: Chart Reviewed Final Anesthetic Review Family History of Problems with Anesthesia: No History of Problems with Anesthesia: No Documented by User: Yennifer Alfonso MD 12/30/24 14:08 [facility] Past Medical History Medical History Choledocholithiasis Bipolar 1 disorder Anxiety and depression Family History Family History Maternal Grandmother Substance abuse Breast cancer Maternal Grandfather Lung cancer Surgical History Surgical History History of esophagogastroduodenoscopy (EGD) Hx laparoscopic cholecystectomy (11/13/24) History of ERCP (10/05/24) Hx of breast reduction, elective (~10/2021) Social History Social History Household Members: Spouse Housing: House Are you a primary hospice home care coordinator to a significant other at home: No Do you presently have visiting nurse or other home services: No Alcohol intake: current Alcohol intake frequency: does not drink Comment: medicated Patient Tobacco Use Status: Never used Tobacco e-Cigarette/Vaping Use: Never Used Second Hand Smoke Exposure: No Substance Use Type: Marijuana Substance Use Type Other:: gummies Have you been hit, kicked, punched, or otherwise hurt by someone within the past year? If so, by whom?: No Are you DNR?: No Advance Directives: No Advance Directives Information Provided: Yes Patient : No service: No Current occupational status: employed Current occupation: [employer] Cognitive needs: No Hearing needs: No Vision needs: No Meds Allergies Allergy/AdvReac Type Severity Reaction Status Date / Time No Known Allergies Allergy Verified 12/09/24 09:48 Home Medications ?Medication ?Instructions ?Recorded ?Confirmed ?Last Taken ?Type bupropion HCl 100 mg tablet 100 mg PO DAILY 09/23/24 12/30/24 12/29/24 History lamotrigine 150 mg tablet 150 mg PO DAILY 09/23/24 12/30/24 12/29/24 History (Lamictal) sertraline 100 mg tablet 100 mg PO BID 12/09/24 12/30/24 12/29/24 History Exam Airway Mallampati Class: II TM Dist: >3cm Neck ROM: Full Heart: rrr Lungs: cta Assessment and Plan Assessment Anesthesia Assessment: Anesthesia Plan Discussed Final Anesthetic Review NPO: Yes ASA Class: II Final Preanesthetic Review: No Changes in Pt Med Stat, Meds/Allgs Chart Reviewed and Consent Obtained/Reviewed Patient Risk: Low Procedure Risk: Low Anesthetic Plan Anesthetic Plan: GA Disposition: Standard PACU
[2024-12-29 15:49] VITALS: BMI 32.9
[2024-12-30] VITALS (7 sets, daily range): BP systolic 115–141; BP diastolic 62–88; PULSE 73–94; RESP 16–18; TEMP 36.3–36.9; O2SAT 95–99; BMI 33.9
--- NOTE | ~2024-12-30 | FL_ITS ---
EXAMINATION: FL GUIDANCE ONLY HISTORY: ERCP WITH POSSIBLE STENT REMOVAL COMPARISON: Correlation is made with a CT of the abdomen with contrast dated 11/09/2024. TECHNIQUE: Fluoroscopy time: 1.2 minutes. Cumulative Dose: 16.6 mGy. DAP: 0.288 mGym2 Images: 7. FINDINGS: Fluoroscopic spot films from an ERCP demonstrate a normal caliber common bile duct. There is partial opacification of the common bile duct. No definite filling defects are identified. The final image demonstrates removal of the previously seen stent. FL/FL guidance in OR IMPRESSION: Fluoroscopy during procedure. Please see procedure report for additional information. Electronically signed by: Jos Solis MD 12/31/2024 07:09 AM EDT
[2024-12-30 13:16] LABS: UPreg QC Valid YES
[2024-12-30] MEDS: Lactated Ringers 1,000 ML 100 ML IVCONT (13:22)
--- NOTE | 2024-12-30 13:49 | MHC.SHP ---
Pre-Procedural Eval Section A - 24 Hr Update-Section A only Date of Service: 12/30/24 Section B - Complete if H&P > 30 days Chief Complaint: Acute pancreatitis w/o necrosis or infection, Relevant Family History (Specify if Yes): No Relevant Social History: None Present Medications: see Short Stay Collaborative assessment Medical History: Significant History (Choledocholithiasis Bipolar 1 disorder Anxiety and depression) History of Previous Operations: Relevant previous surgery/procedure and date(s) (History of esophagogastroduodenoscopy (EGD) Hx laparoscopic cholecystectomy (11/13/24) History of ERCP (10/05/24) Hx of breast reduction, elective (~10/2021)) Allergies: Allergies Allergy/AdvReac Type Severity Reaction Status Date / Time No Known Allergies Allergy Verified 12/09/24 09:48 Review of Systems Sugical H&P ROS: Negative: Constitution, Cardiovascular, Respiratory, Neurological, Psychiatric, Hem-Onc, Allergic/Immunologic, Gastrointestinal, Genitourinary, Musculoskeletal, Integumentary, Endocrine and Eyes/Ears/Nose/Throat Exam Surgical H&P Exam: Normal: HEENT, Normal: Heart, Normal: Lungs, Normal: Extremities, Normal: Abdomen, Normal: Skin and Normal: Neurological Plan Diagnosis/Plan: Unchanged I have reviewed the history and physical and performed a pertinent physical examination on my patient. No changes have occurred unless specified. ercp with stent removal Time Spent With Patient Time: Total time managing care of this patient today ____ minutes.
--- NOTE | 2024-12-30 15:53 | W.PM.OPN ---
Operative Note Operative Note Date of Service: 12/30/24 Narrative: Description:?Endoscopic retrograde cholangiopancreatography (ERCP) PROCEDURE:?Endoscopic retrograde cholangiopancreatography with stent removal, sphincterotomy, balloon sweep, intra op cholangiogram and spyglass INDICATION FOR THE PROCEDURE:?Patient with a history of choledocholithiasis and stent placement, here for stent removal MEDICATIONS:?General anesthesia. The risks of the procedure were made aware to the patient and consisted of medication reaction, bleeding, perforation, aspiration, and post ERCP pancreatitis. DESCRIPTION OF PROCEDURE:?After informed consent and appropriate sedation, the duodenoscope was inserted into the oropharynx, down the esophagus, and into the stomach. The scope was then advanced through the pylorus to the ampulla. A pigtail stent was noted and removed using a snare. A tome was then used and angled to enter the bile duct. Some debris and sludge was noted coming out. A cholangiogram revealed a filling defect in the proximal CBD. A sphincterotomy was performed to facilitate access and enlarge the orifice. A 12 mm balloon was swept along the CBD and some stone debris came out. An occlusion cholangiogram was performed with filling defect noted in distal CBD but thought to be air bubbles, so spyglass used and direct visualization up to the common heptic duct was done without stones being seen. Intraop cholangiogram reivew and interpretation by performing physician: CBD with filling defect in proximal CBD noted with removal of sludge and debris. CBD measured about 8 mm. No stricture or leak seen. FINDINGS: 1. CBD stent removal 2. CBD sludge and stone debris RECOMMENDATIONS: 1. clears today and advance diet tomorrow 2. if any worsening pain or fever, jaundice come to the ED for assessment
== END 2024-12-30 17:10 | disposition home or self-care (01) ==
PROVIDERS: Nurse Practitioner; PCP Nurse Practitioner Family; Visit Provider Internal Medicine Gastroenterology
PROC: (CPT 43260; principal; 2024-12-30 14:00)
DX: K91.89 Other postprocedural complications and disorders of digestive system (principal); K85.90 Acute pancreatitis without necrosis or infection, unspecified; Z98.890 Other specified postprocedural states; Z90.49 Acquired absence of other specified parts of digestive tract; E78.5 Hyperlipidemia, unspecified; E55.9 Vitamin D deficiency, unspecified; Z79.899 Other long term (current) drug therapy
CPT/HCPCS: 43275; 43262; 43264; 43273; 81025; C1748; C1887; J0131; J0690; J1100; J1610; J1630; J2003; J2250; J2371; J2405; J3010; Q9967

== ENCOUNTER → 2024-12-30 12:48 | Outpatient (BNV) | payer OTHER, SELFPAY | PROVIDERS: PCP Nurse Practitioner Family; Visit Provider Internal Medicine Gastroenterology | DX: Z87.19 Personal history of other diseases of the digestive system (principal) | CPT/HCPCS: 43262; 43273; 43275 ==